=== PATIENT | female | born 1960 | race Caucasian/White ===

== ENCOUNTER 2021-06-27 12:18 | Inpatient (IN) | payer OTHER, SELFPAY ==
[2021-06-27] VITALS (28 sets, daily range): BP systolic 126–152; BP diastolic 77–96; PULSE 87–108; RESP 6–38; TEMP 36.6–37.2; O2SAT 50–97
--- NOTE | ~2021-06-27 | XR_ITS ---
EXAMINATION: XR chest 1V portable DATE: 06/29/2021 08:19 INDICATION: COVID-19 pneumonia. TECHNIQUE: A single frontal view of the chest was obtained. COMPARISON: Chest single view 06/27/2021, chest CT 06/27/2021 FINDINGS: There are airspace opacities in all lung zones bilaterally. No pleural effusion or pneumoth orax. The heart size is normal. IMPRESSION: 1. Diffuse lung disease with improvement from 06/27/2021, consistent with COVID-19 pneumonia. Reviewed, dictated and finalized at location A. IMPRESSION: 1. Diffuse lung disease with improvement from 06/27/2021, consistent with COVID-1 9 pneumonia.
--- NOTE | ~2021-06-27 | CT_ITS ---
EXAMINATION: CTA chest PE protocol EXAM DATE: 06/27/2021 15:14 INDICATION: covid +, shortness of breath, fevers, cough. TECHNIQUE: Spiral CTA of the chest (pulmonary arteries) was performed with 100 cc Omnipaque 350 intr avenous contrast injection. Images were acquired during the pulmonary arterial phase. Coronal maxi mum intensity projection 3D-reconstructions were created by the technologist on dedicated workstation . Axial, coronal and sagittal reformatted images were reviewed. The dose-length product (DLP) for t his examination was 248.69 mGy-cm. The exposure was tailored according to patient size (auto mA exp osure control), and iterative reconstruction (ASIR) was used as additional dose reduction technique. There is no prior study for comparison. FINDINGS: The main, central pulmonary arteries are dilated which can indicate elevated pulmonary [place] rial pressure, pulmonary arterial hypertension. There are no pulmonary emboli in the 1st through 3r d order (central and interlobar) pulmonary arteries. Some loss of attenuation in the left basilar se gmental pulmonary from respiratory motion, these regions not confidently evaluated. No Intraluminal f illing defects identified. No thoracic aortic dissection. There is diffuse bilateral airspace disease, both groundglass opacities but also regions of confluenc e. Appearance is consistent with acute to subacute COVID pneumonia. There are no pleural or pericar dial effusions. Tracheobronchial tree is patent. There is no mediastinal, hilar or axillary lymph adenopathy. There is no pneumothorax. Heart normal in size. No evidence of coronary arterial ca lcification. Upper abdomen is unremarkable. There is thoracic spondylosis without osteoblastic or osteolytic lesions identified. IMPRESSION: 1. Limited left basilar segmental evaluation, but no pulmonary emboli are suspected. 2. Extensive COVID pneumonia. Reviewed, dictated and finalized at location A. IMPRESSION: 1. Limited left basilar segmental evaluation, but no pulmonary emboli are susp ected. 2. Extensive COVID pneumonia.
--- NOTE | ~2021-06-27 | XR_ITS ---
EXAMINATION: XR chest 1V portable EXAM DATE: 06/27/2021 13:48 INDICATION: COVID +, dyspnea. TECHNIQUE: Portable AP frontal chest x-ray was obtained. There is no prior study for comparison. FINDINGS: Diffuse bilateral acute airspace disease, appearance is consistent with COVID pneumonia. Th ere is cardiomegaly. No pneumothorax or pleural effusion. There are no osseous abnormalities identifi ed. IMPRESSION: Diffuse pneumonia. Reviewed, dictated and finalized at location A. IMPRESSION: Diffuse pneumonia.
--- NOTE | ~2021-06-27 | US_ITS ---
EXAMINATION:US venous doppler LE RT INDICATION:Right calf pain TECHNIQUE: Multiple grayscale, color flow and Doppler images of the right lower extremity deep venous systems were obtained and reviewed. COMPARISON:No prior studies for comparison. FINDINGS: The common femoral, superficial femoral and popliteal veins demonstrate normal respiratory variation, augmentation and compressibility. Color flow is also seen within the posterior tibial, pe roneal, greater saphenous and profunda veins. IMPRESSION: 1: No lower extremity deep venous thrombosis. Reviewed, dictated and finalized at location A.
--- NOTE | 2021-06-27 12:35 | ED.URI ---
HPI - URI/Sore Throat General Chief Complaint: Upper Respiratory Infection Stated Complaint: Covid + Fatique,confusion Time Seen by Provider: 06/27/21 12:35 Source: patient Mode of arrival: ambulatory History of Present Illness HPI Narrative: Patient is a 61-year-old female with a history of depression, anemia who presents for evaluation of worsening Covid type symptoms. Patient with a positive Covid test on June 19. Initially started with fever, chills, dry cough. Patient has had associated myalgias, decreased oral intake without nausea or vomiting. She reports mild diarrhea. No chest pain. She does report shortness of breath at baseline. She states she is very fatigued. 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 Of note, patient oxygen saturations at 60% on room air. Patient placed on NRB mask at 15 L/min. Related Data Allergies Allergy/AdvReac Type Severity Reaction Status Date / Time codeine Allergy Mild NAUSEA Verified 06/27/21 12:56 diphenhydramine Allergy Hallucinati Verified 06/27/21 12:56 [From Quel] [email or web address] Review of Systems Review of Systems: CONSTITUTIONAL: Reports fever and chills EYES: Denies visual changes, redness, or discharge. ENT: Denies rhinorrhea, congestion, sore throat, or otalgia. CARDIOVASCULAR: Denies chest pain, palpitations, or edema. RESPIRATORY: Reports productive cough and shortness of breath. GASTROINTESTINAL: Denies abdominal pain, nausea, vomiting, or diarrhea. GENITOURINARY: Denies dysuria or hematuria. SKIN: Denies rash or itching. 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 EYES: PERRLA and EOMI. ENT: Nares clear, no rhinorrhea or epistaxis. Mucous membranes dry. NECK: Supple. CHEST: Hypoxic, tachypnea, nonlabored respirations HEART: Tachycardic rate, sinus rhythm ABDOMEN:Non distended, non tender EXTREMITIES: Normal range of motion. Bilateral lower extremity nonpitting edema, mild right calf tenderness SKIN: Warm, dry, no rash. NEURO:No focal deficits. Alert and oriented x3 Course Vital Signs Vital signs: Vital Signs Pulse Rate 107 H 06/27/21 12:29 Respiratory Rate 18 06/27/21 12:29 Temperature 37.2 C 06/27/21 12:46 Pulse Rate 90 06/27/21 16:31 Respiratory Rate 12 06/27/21 16:31 Blood Pressure 138/77 06/27/21 16:31 Pulse Oximetry 95 06/27/21 16:31 MDM - URI/Sore Throat MDM Narrative Medical decision making narrative: Patient is a 61-year-old female with recent diagnosis of Covid on day 8 of illness who presented in hypoxic respiratory failure. The time of assessment, oxygen saturation is 60% in room, patient is not terribly tachypneic, but is tachycardic. She was placed on a nonrebreather with improvement to 94%. Patient was able to be titrated over to high flow nasal cannula at 15 L. Patient was some mild electrolyte abnormalities, mild hyponatremia, hypochloremia, hypocalcemia, hypokalemia. She was given gentle IV normal saline as well as oral potassium replacement. Patient with mild elevation in AST. No other severe abnormalities on exam. She does have an elevated D-dimer, will obtain a CT to ensure no PE. Given appearance of chest x-ray, consistent with Covid hypoxic respiratory failure. Patient was given Decadron in the ER per protocol. Remdesivir protocol ordered. Patient not started on antibiotic therapy given this is a viral p
--- NOTE | 2021-06-27 13:05 | ECG_ITS ---
Measurements Intervals Sullivan Rate: 94 P: 21 OK: 144 QRS: 1 QRSD: 81 T: -10 QT: 388 QTc: 485 Interpretive Statements SINUS RHYTHM WITH SINUS ARRHYTHMIA BORDERLINE T WAVE ABNORMALITY- ANTEROLAT/INF LEADS BORDERLINE ECG Electronically Signed On 06-27-2021 13:58:22 CDT by Rob Santiago D.O.
[2021-06-27] MEDS: SODIUM CHLORIDE 0.9% IV 1,000 ML 999 ML IV CONT (13:30)
[2021-06-27] MEDS: ONDANSETRON INJ 4 MG/2 ML VIAL IV PUSH (13:30)
[2021-06-27 13:31] LABS: Hematocrit 38.7 % (37.0-47.0); Hemoglobin 12.5 g/dL (12.0-15.0); Immature Granulocyte Absolute 0.05 K/mm3 (0.00-0.031); Immature Granulocyte Percent A 0.8 % (0-0.5); Lymphocytes Absolute Auto 0.54 K/mm3 (0.9-3.2); Lymphocytes Percent Auto 8.5 % (18.3-44.2); Mean Corpuscular HGB Conc 32.3 g/dl (32-36); Mean Corpuscular Hemoglobin 30.2 pg (26-34); Mean Corpuscular Volume 93.5 fl (80-100); Mean Platelet Volume 9.3 fl (7.4-10.4); Monocytes Absolute Auto 0.2 K/mm3 (0.1-0.6); Neutrophils Absolute Auto 5.6 K/mm3 (1.3-6.7); Neutrophils Percent Auto 87.7 % (45.5-73.1); Platelet Count Result 245 k/mm3 (150-375); Red Blood Count 4.14 M/mm3 (4.2-5.4); Red Cell Distribution Width 13.3 % (11.5-14.5); White Blood Count 6.4 K/mm3 (4.5-10.0)
[2021-06-27 13:32] LABS: Alveolar/Arterial O2 Gradient 485.8 mmHg; Carboxyhemoglobin 1.3 % THb (0-2.0); Fractional Inspired Oxygen 80 %; HCO3 ABG 30.9 mEq/l (22.0-26.0); Methemoglobin ABG 0.1 %THb (0-1.5); Oxygen Content ABG 13.1 %vol (16.0-22.0); Oxyhemoglobin 78.7 % THb (90.0-100.0); PCO2 ABG 41.5 mmHg (35.0-45.0); PO2 FiO2 Ratio Arterial Blood 0.51 %; Reduced Hemoglobin 19.9 %THb (0-5.0); Total Hemoglobin 11.9 g/dL (12.0-18.0)
[2021-06-27 13:36] LABS: Device NON-REBREATHER MASK; Modified Allen's Test Pass; Oxygen Saturation ABG 80.4 % (95.0-100.0); Site Drawn LEFT RADIAL
[2021-06-27 13:41] LABS: Prothrombin Time 13.2 Seconds (11.1-14.7)
[2021-06-27 13:42] LABS: Partial Thromboplastin Time 35.4 SECONDS (22.3-36.8)
[2021-06-27 13:44] LABS: D Dimer 1.87 ug/mL (<0.48)
[2021-06-27 13:47] LABS: Lactic Acid Reflex 1.6 mmol/L (0.7-2.1)
[2021-06-27 13:53] LABS: Alanine Aminotransferase 26 U/L (4-35); Albumin Level 3.5 g/dL (3.5-5.1); Alkaline Phosphatase 87 U/L (38-126); Anion Gap 5 mmol/L (8-16); Aspartate Amino Transferase 80 U/L (14-36); Bilirubin,Total 0.7 mg/dL (0.2-1.3); Blood Urea Nitrogen 8 mg/dL (7-17); Calcium 7.9 mg/dL (8.4-10.2); Carbon Dioxide 33 mmol/L (22-30); Chloride 93 mmol/L (98-107); Creatine Kinase 145 U/L (30-135); Estimated CRCL calculation 130 ml/min; Estimated Glomerular Filt Rate > 60; Glucose 119 mg/dL (65-110); Potassium 3.2 mmol/L (3.4-5.0); Sodium 131 mmol/L (137-145)
[2021-06-27 14:01] LABS: NT Pro B Type Natriuretic Pept 291 pg/mL (5-100); Troponin I < 0.012 ng/mL (0.000-0.034)
[2021-06-27 14:11] LABS: Add Urine Microscopic? YES; Appearance Urine Clear (Clear); Bacteria Urine Trace /hpf; Bilirubin Urine Negative (Negative); Blood Urine Negative (Negative); Color Urine Yellow (Yellow); Glucose Urine UA Negative (Negative); Ketones Urine Negative (Negative); Leukocyte Esterase Ur Negative LEU/UL (Negative); Mucus Urine Rare /lpf; Nitrate Urine Negative (Negative); Protein Urine 2+ mg/dL (Negative); Specific Grav Ur 1.012 (1.001-1.035); Squamous Epithelial Cell Urine Moderate /hpf (Few); Urobilinogen Urine Negative mg/dL (<2.0)
[2021-06-27 14:29] LABS: CRP 31.7 mg/dL (<1.0)
--- NOTE | 2021-06-27 14:30 | PM.IMHP ---
H&P: HPI History of Present Illness Date/Time: 06/27/21 14:30 Chief Complaint: COVID positive, multiple complaints Narrative: This is a very pleasant 61-year-old recently diagnosed with COVID-19 with chronic sinusitis and anxiety who presented to the emergency department earlier today from home with multiple complaints. On June 18, 2021 she developed symptoms similar to those that she experiences with sinus infections including sinus congestion, rhinorrhea, congestion, and mild sore throat. She was prescribed a Z-Shen on the same day by her primary care provider and was tested for COVID-19 as well, which came back positive the following day. Since that time she has continued to feel poorly with symptoms to include body aches, fever, poor appetite, weakness, dry cough, shortness of breath, and even some mild confusion. She has been taking acetaminophen and [id number] nighttime cold and flu therapies without much benefit. Today she was extremely short of breath and decided to come in for evaluation. On arrival to the emergency department her SpO2 was 62% on room air and she is currently on high-flow nasal cannula 60 L at 85% FiO2 with SpO2 in the mid 90s. CTA of the chest showed extensive COVID pneumonia and no obvious pulmonary emboli though evaluation with limited left basilar segment due to respiratory motion. She did not receive prophylactic treatment or early treatment with monoclonal antibodies and was not vaccinated. 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 After lengthy discussion with the patient, with 2 nurses as witnesses, the patient designates her ex- Richard Malone as her surrogate decision maker. The patient had originally designated her sister, Tia, as her surrogate decision maker however they have differing opinions regarding treatment options. She wishes to be a full code and is amenable to intubation and if needed as well as tracheostomy should her condition decline. The patient expressed her wish to be treated with dexamethasone, remdesivir, baricitinib, and convalescent plasma after discussions with myself as well as the ER physician. Review of Systems Review of Systems: Twelve systems were reviewed. She has had a mild headache. No vertigo. No neck ache. She denies rash. No vomiting or diarrhea. No dysuria. No syncope. Except as documented, all other systems were reviewed and are negative. [facility] Past Medical History Medical History (Updated 06/27/21 @ 21:13 by Bree Zuluaga PA-C) Anxiety Chronic sinusitis Depression Surgical History Surgical History (Updated 06/27/21 @ 21:03 by Bree Zuluaga PA-C) History of section X4. History of dilation and curettage History of endometrial ablation Family History Family History (Updated 06/27/21 @ 21:03 by Bree Zuluaga PA-C) Other No significant family history Social History Social History (Updated 06/27/21 @ 21:27 by Bree Zuluaga PA-C) Social History: Surrogate decision maker: Richard Malone, ex-. Code status: Full code. Smoking status: Never smoker Alcohol intake: never Substance use: never Additional living arrangements comments: The patient lives in [place] with her sons. 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 Meds Home Medications and Allergies Home Medications Medication Instructions Recorded Confirmed Type clonazepam 2 mg PO BID PRN 06/27/21 06/27/21 History Allergies Allergy/AdvReac Type Severity Reaction Status Date / Time codeine Allergy Mild NAUSEA Verified 06/27/21 12:56 diphenhydramine Allergy Hallucinati Verified 06/27/21 12:56 [From Benadryl] ng Vital Signs Vital Signs - 24 hr 06/27/21 12:29 06/27/21 12:30 06/27/21 12:31 Temperature Pulse Rate 107 H 106 H 108 H Respiratory Rate 18 36 H 25 H Blood Pressure 152/83 H Pulse Oximetry 50 L 51 L 06/27/21 12:45 06/27/21
--- NOTE | 2021-06-27 14:59 | PC.NURSE ---
Pt off floor in radiology
[2021-06-27] MEDS: REMDESIVIR 200 MG/NS 250 ML 200 MG/250 ML BAG 250 MG IVPB (15:58)
--- NOTE | 2021-06-27 16:00 | PC.NURSE ---
Patient assisted to bedside commode. Dropped to 75% on high flow nasal cannula @ 15 liters. Pt then had coughing fit, continued to stay at 75%. MD aware. Placed on non-rebreather 15 liters, O2 is 95%. Pt laying on left side. Respiratory at bedside.
[2021-06-27 17:00] LABS: Alanine Aminotransferase 27 U/L (4-35); Estimated CRCL calculation 130 ml/min; Estimated Glomerular Filt Rate > 60; Prothrombin Time 13.5 Seconds (11.1-14.7)
--- NOTE | 2021-06-27 17:47 | PC.NURSE ---
Patient's son was updated by phone with permission from patient.
[2021-06-27] MEDS: POTASSIUM CHLORIDE 20 MEQ PACKET (FOR LIQUID) 40 MEQ PO (18:22)
--- NOTE | 2021-06-27 18:23 | PC.NURSE ---
Linen change after using bedpan. Pt currently drinking potassium. 92%
--- NOTE | 2021-06-27 18:33 | PC.NURSE ---
Called Kirk in IMU with update. Patient had small nose bleed, cleaned up. Pt coughing after using bedpan, saturations remained stable.
--- NOTE | 2021-06-27 18:37 | PC.NURSE ---
ED respiratory called for transport to IMU
--- NOTE | 2021-06-27 19:14 | ADMGEN ---
This patient, Jenna Malone, was admitted to IMU Room 214-01. Patient/family oriented to hospital policies and general routines including ID bracelet, bed and alarms, visiting hours, pain management, procedures, bathroom and other care routines, personal items, smoking policy, room service/diet, and visiting hours. Information on how to activate the Rapid Response Team has been discussed. Patient/Family are encouraged to report perceived risks to care and to ask questions if they do not understand what they are told or what they should do.
[2021-06-27] MEDS: SODIUM CHLORIDE 0.9% IV 1,000 ML 125 ML IV CONT (20:23)
--- NOTE | 2021-06-27 21:55 | PC.NURSE ---
During patient admission patient sister called and got very aggressive with staff. Said Why are you asking any questions! She has COVID, she doesn't want anything done! Tried to talk to the sister and explain that getting a past medical history will help treat her. This made the sister even more upset. Patient then took the phone away and hung up on the sister. Talk to patient about her primary contact and the importance of dedicating a person that would make decisions for her, she appointed Vern Malone. He was called and asked if he was able to make decisions for her if she was no longer able to do so, he said Yes I will do anything she wants me to do. Asked patient if there was a need to be ventilated and place on a ventilator that the patient was all right with us doing so, patient said yes with Vern on the phone. Patient also agreed to with the current plan of care and medication that has been ordered at this time. Vern was also updated on what the current plan and medication are at this time.
[2021-06-27 22:50] LABS: Anion Gap 2 mmol/L (8-16); Blood Urea Nitrogen 7 mg/dL (7-17); Carbon Dioxide 35 mmol/L (22-30); Chloride 101 mmol/L (98-107); Estimated CRCL calculation 130 ml/min; Estimated Glomerular Filt Rate > 60; Glucose 147 mg/dL (65-110); Magnesium 2.5 mg/dL (1.6-2.3); Potassium 4.3 mmol/L (3.4-5.0); Sodium 138 mmol/L (137-145)
[2021-06-27 23:16] LABS: Lactate Dehydrogenase 2021 U/L (313-618)
[2021-06-28] VITALS (29 sets, daily range): BP systolic 144–168; BP diastolic 79–96; PULSE 69–100; RESP 20–44; TEMP 36.4–37.1; O2SAT 90–99
[2021-06-28] MEDS: BARICITINIB 2 MG TABLET 4 MG PO ×2 (00:17→15:02)
[2021-06-28 06:31] LABS: Hematocrit 35.2 % (37.0-47.0); Hemoglobin 11.5 g/dL (12.0-15.0); Mean Corpuscular HGB Conc 32.7 g/dl (32-36); Mean Corpuscular Hemoglobin 30.2 pg (26-34); Mean Corpuscular Volume 92.4 fl (80-100); Mean Platelet Volume 8.9 fl (7.4-10.4); Platelet Count Result 273 k/mm3 (150-375); Red Blood Count 3.81 M/mm3 (4.2-5.4); Red Cell Distribution Width 13.2 % (11.5-14.5); White Blood Count 3.2 K/mm3 (4.5-10.0)
[2021-06-28 06:43] LABS: INR 1.1; Prothrombin Time 14.5 Seconds (11.1-14.7)
[2021-06-28 07:14] LABS: Albumin Level 3.2 g/dL (3.5-5.1)
[2021-06-28 07:18] LABS: Alanine Aminotransferase 27 U/L (4-35); Alkaline Phosphatase 77 U/L (38-126); Anion Gap 3 mmol/L (8-16); Aspartate Amino Transferase 66 U/L (14-36); Bilirubin,Total 0.7 mg/dL (0.2-1.3); Blood Urea Nitrogen 10 mg/dL (7-17); Calcium 8.2 mg/dL (8.4-10.2); Carbon Dioxide 32 mmol/L (22-30); Chloride 102 mmol/L (98-107); Estimated CRCL calculation 130 ml/min; Estimated Glomerular Filt Rate > 60; Glucose 120 mg/dL (65-110); Magnesium 2.3 mg/dL (1.6-2.3); Potassium 3.9 mmol/L (3.4-5.0); Sodium 137 mmol/L (137-145)
[2021-06-28 07:30] LABS: Lactate Dehydrogenase 2034 U/L (313-618)
[2021-06-28] MEDS: ALBUTEROL SULFATE (*SP) AEROSOL 1 PUFF 2 PUFF INHALATION ×4 (09:09→20:04)
[2021-06-28] MEDS: BUDESONIDE RESPULE NEB 0.5 MG/2 ML AMP INHALATION ×2 (09:09→20:04)
[2021-06-28] MEDS: guaiFENesin 12 HR 600 MG TABCR PO ×2 (09:10→21:12)
[2021-06-28] MEDS: ENOXAPARIN 40 MG/0.4 ML SYRINGE SUB-Q (09:11)
[2021-06-28 09:41] LABS: CRP 31.9 mg/dL (<1.0)
[2021-06-28] MEDS: REMDESIVIR 100 MG/NS 250 ML 100 MG/250 ML BAG 250 MG IVPB (11:01)
--- NOTE | 2021-06-28 12:52 | PM.IMPN ---
Progress Note: A&P Assessment and Plan (1) Acute respiratory failure with hypoxia: Code(s): J96.01 - Acute respiratory failure with hypoxia Status: Acute Assessment and Plan: Secondary to extensive COVID pneumonia noted on chest CT. Currently on high-flow nasal cannula, 60 L at 85% FiO2. Patient amenable to intubation and tracheostomy if needed. Albuterol MDI and Pulmicort scheduled. (2) Pneumonia due to COVID-19 virus: Code(s): U07.1 - COVID-19; J12.82 - Pneumonia due to coronavirus disease 2019 Status: Acute Assessment and Plan: Chest CT shows extensive acute to subacute COVID pneumonia. Patient has been started on dexamethasone, remdesivir, and baricitinib (day 1). Continue contact, droplet, and airborne isolation precautions. Trend inflammatory markers (CRP 31.7). (3) Elevated blood pressure reading: Code(s): R03.0 - Elevated blood-pressure reading, without diagnosis of hypertension Status: Acute Assessment and Plan: Blood pressures were reviewed and they have been running in the 130s to 140 systolic. Patient is quite anxious and we discussed limiting phone calls at least tonight so she can sleep. Will continue to monitor blood pressures closely for now and initiate antihypertensive if it trends high consistently. (4) Dehydration: Code(s): E86.0 - Dehydration Status: Acute Assessment and Plan: Secondary to poor oral intake for the past 1 week. Cautious IV fluid rehydration overnight. Avoid over-hydration given her COVID-19 status. Encouraged oral intake. (5) Hypokalemia: Code(s): E87.6 - Hypokalemia Status: Acute Assessment and Plan: Potassium will be replaced and monitored. (6) Anxiety: Code(s): F41.9 - Anxiety disorder, unspecified Status: Acute Assessment and Plan: Patient is quite anxious at times, seems to be worse after on the phone with her family members. Continue clonazepam twice daily as needed. Encouraged rest and taking breaks from her phone. Additional Plan The patient has authorized us to speak ONLY with her ex-, Richard Malone, and her 4 children (Domo, Mariusz, Bhavin, and Radha) on her condition and with updates. She also designates Richard as her surrogate decision maker as detailed above. Patient remains a full code and is amenable to intubation and tracheostomy if needed. As of now continue with remdesivir, steroids, baricitinib, oxygen to maintain saturation above 90. Time Spent With Patient Time with patient: less than 15 minutes Subjective Date/time seen: 06/28/21 12:52 patient receiving breathing treatment, respiration is not labored, although she does not appear comfortable. Requiring supplemental oxygen to maintain saturations. Review of Systems Review of Systems: All systems reviewed & are unremarkable except as noted in HPI and below Exam Const: General: no acute distress Neck: Neck: no JVD Resp: Effort & Inspection: normal respiratory effort Auscultation: not clear to auscultation bilaterally Other: diffuse crackles in all lung viveros, some mild wheezing Cardio: Rate: regular rate Rhythm: regular rhythm GI: GI Palp: Yes Soft to palpation and No Tenderness to palpation present (GI) Objective Data Vital Signs Vital Signs: Vital Signs - 24 hr 06/27/21 12:57 06/27/21 13:00 06/27/21 13:15 Temperature Pulse Rate 97 95 Respiratory Rate 29 H 34 H Blood Pressure Pulse Oximetry 94 95 95 06/27/21 13:31 06/27/21 16:15 06/27/21 16:20 Temperature Pulse Rate 96 89 Respiratory Rate 27 H 6 L Blood Pressure Pulse Oximetry 92 95 95 06/27/21 16:30 06/27/21 16:31 06/27/21 16:32 Temperature Pulse Rate 88 90 87 Respiratory Rate 12 Blood Pressure 138/77 Pulse Oximetry 95 95 95 06/27/21 16:45 06/27/21 16:46 06/27/21 17:00 Temperature Pulse Rate 95 89 91 Respiratory Rate 33 H 34 H 25 H
[2021-06-28 20:43] LABS: SARS-CoV-2 RNA PCR Positive
[2021-06-29] VITALS (22 sets, daily range): BP systolic 124–158; BP diastolic 69–88; PULSE 62–95; RESP 20–44; TEMP 36.4–37.2; O2SAT 93–99; BMI 32.3
[2021-06-29 06:03] LABS: Basophils Percent Auto 0.1 % (0.2-1.2); Hematocrit 35.6 % (37.0-47.0); Hemoglobin 11.6 g/dL (12.0-15.0); Immature Granulocyte Absolute 0.09 K/mm3 (0.00-0.031); Immature Granulocyte Percent A 1.3 % (0-0.5); Lymphocytes Percent Auto 16.1 % (18.3-44.2); Mean Corpuscular HGB Conc 32.6 g/dl (32-36); Mean Corpuscular Hemoglobin 30.6 pg (26-34); Mean Corpuscular Volume 93.9 fl (80-100); Mean Platelet Volume 9.2 fl (7.4-10.4); Monocytes Absolute Auto 0.5 K/mm3 (0.1-0.6); Monocytes Percent Auto 7.6 % (2.6-8.5); Neutrophils Absolute Auto 5.1 K/mm3 (1.3-6.7); Neutrophils Percent Auto 74.9 % (45.5-73.1); Nucleated Red Blood Cells Perc 0.3 % (0.0-0.2); Platelet Count Result 256 k/mm3 (150-375); Red Blood Count 3.79 M/mm3 (4.2-5.4); Red Cell Distribution Width 13.4 % (11.5-14.5); White Blood Count 6.8 K/mm3 (4.5-10.0)
[2021-06-29 06:16] LABS: Alanine Aminotransferase 33 U/L (4-35); Albumin Level 3.3 g/dL (3.5-5.1); Alkaline Phosphatase 77 U/L (38-126); Anion Gap 4 mmol/L (8-16); Aspartate Amino Transferase 76 U/L (14-36); Blood Urea Nitrogen 17 mg/dL (7-17); Calcium 8.6 mg/dL (8.4-10.2); Carbon Dioxide 31 mmol/L (22-30); Chloride 101 mmol/L (98-107); Estimated CRCL calculation 130 ml/min; Estimated Glomerular Filt Rate > 60; Glucose 108 mg/dL (65-110); Magnesium 2.4 mg/dL (1.6-2.3); Phosphorus 3.8 mg/dL (2.5-4.5); Sodium 136 mmol/L (137-145)
[2021-06-29 06:24] LABS: INR 1.1; Prothrombin Time 14.4 Seconds (11.1-14.7)
[2021-06-29] MEDS: ALBUTEROL SULFATE (*SP) AEROSOL 1 PUFF 2 PUFF INHALATION ×2 (08:00→21:47)
[2021-06-29] MEDS: BUDESONIDE RESPULE NEB 0.5 MG/2 ML AMP INHALATION ×2 (08:30→21:47)
[2021-06-29] MEDS: guaiFENesin 12 HR 600 MG TABCR PO (08:45)
[2021-06-29] MEDS: BARICITINIB 2 MG TABLET 4 MG PO (08:45)
[2021-06-29] MEDS: ENOXAPARIN 40 MG/0.4 ML SYRINGE SUB-Q (08:46)
[2021-06-29 08:54] LABS: Alveolar/Arterial O2 Gradient 505.1 mmHg; Base Excess ABG 5.5 mEq/l (+/-2.0); Carboxyhemoglobin 0.3 % THb (0-2.0); Fractional Inspired Oxygen 90 %; HCO3 ABG 29.2 mEq/l (22.0-26.0); Methemoglobin ABG 0.3 %THb (0-1.5); Oxygen Content ABG 17.8 %vol (16.0-22.0); Oxygen Saturation ABG 97.7 % (95.0-100.0); Oxyhemoglobin 96.1 % THb (90.0-100.0); PCO2 ABG 39.7 mmHg (35.0-45.0); PO2 ABG 95.9 mmHg (80.0-100.0); PO2 FiO2 Ratio Arterial Blood 1.07 %; Reduced Hemoglobin 3.3 %THb (0-5.0); Total Hemoglobin 13.1 g/dL (12.0-18.0); pH ABG 7.485 (7.350-7.450)
[2021-06-29 08:55] LABS: Device NON-INVASIVE VENT; Modified Allen's Test Pass; Non-Invasive Expiratory Pressure 7 CMH2O; Non-Invasive Inspiratory Pressure 15 CMH2O; Non-Invasive Vent Rate 4 /MIN; Site Drawn LEFT RADIAL
[2021-06-29] MEDS: clonazePAM (*CRX) 0.5 MG TABLET 1 MG PO ×2 (08:59→21:17)
--- NOTE | 2021-06-29 09:34 | PM.IMPN ---
Progress Note: A&P Assessment and Plan (1) Acute respiratory failure with hypoxia: Code(s): J96.01 - Acute respiratory failure with hypoxia Status: Acute Assessment and Plan: Secondary to extensive COVID pneumonia noted on chest CT. High-flow nasal cannula, continues to be short of breath, will initiate BiPAP wean as tolerated Patient amenable to intubation Albuterol MDI and Pulmicort scheduled (2) Pneumonia due to COVID-19 virus: Code(s): U07.1 - COVID-19; J12.82 - Pneumonia due to coronavirus disease 2018 Status: Acute Assessment and Plan: Chest CT shows extensive acute to subacute COVID pneumonia. Continue dexamethasone, remdesivir, and baricitinib 06/28- Continue contact, droplet, and airborne isolation precautions. (3) Elevated blood pressure reading: Code(s): R03.0 - Elevated blood-pressure reading, without diagnosis of hypertension Status: Acute Assessment and Plan: Persistently elevated. Initiate amlodipine 5 mg daily and titrate. (4) Dehydration: Code(s): E86.0 - Dehydration Status: Acute Assessment and Plan: Discontinue IVF Encourage oral hydration (5) Hypokalemia: Code(s): E87.6 - Hypokalemia Status: Acute Assessment and Plan: Replaced, now normal (6) Anxiety: Code(s): F41.9 - Anxiety disorder, unspecified Status: Acute Assessment and Plan: Patient is quite anxious at times, seems to be worse after on the phone with her family members. Continue clonazepam twice daily as needed. Additional Plan DVT prophylaxis: enoxaparin Code status: Full code Subjective Date/time seen: 06/29/21 09:34 Initially was stable on oxygen early in the night, thin had some rigorous cough after which O2 saturation has dropped concurrently on high-flow oxygen. She feels her shortness of breath is worsening history currently. Blood pressure systolics 140s, heart rate 60s and regular. Exam Narrative: Gen: Alert, on high-flow oxygen Abd: Soft, NT, ND Heart: RRR Lungs: CTAB Ext: No lower extremity edema Objective Data Vital Signs Vital Signs: Vital Signs - 24 hr 06/28/21 09:43 06/28/21 10:00 06/28/21 12:00 Temperature 97.6 F Pulse Rate 99 91 95 Respiratory Rate 22 H Blood Pressure 144/79 H Pulse Oximetry 93 95 09/09/21 12:47 06/28/21 14:00 06/28/21 15:06 Temperature 97.9 F 98.5 F Pulse Rate 92 90 82 Respiratory Rate 20 28 H Blood Pressure 156/95 H 150/83 H Pulse Oximetry 93 95 06/28/21 15:25 06/28/21 16:00 06/28/21 16:25 Temperature 98.7 F 98.5 F Pulse Rate 83 78 82 Respiratory Rate 28 H 32 H Blood Pressure 151/85 H 149/81 H Pulse Oximetry 95 92 96 06/28/21 16:33 06/28/21 17:25 06/28/21 17:29 Temperature 97.9 F 98.5 F Pulse Rate 96 82 Respiratory Rate 44 H 32 H Blood Pressure 150/85 H 149/81 H Pulse Oximetry 99 91 96 06/28/21 18:00 06/28/21 20:00 06/28/21 20:06 Temperature Pulse Rate 86 89 97 Respiratory Rate 24 H Blood Pressure Pulse Oximetry 98 97 06/28/21 20:24 06/28/21 20:25 06/28/21 20:39 Temperature 97.8 F Pulse Rate 98 87 Respiratory Rate 28 H 22 H Blood Pressure 147/83 H Pulse Oximetry 97 96 06/28/21 22:00 06/29/21 00:00 06/29/21 02:00 Temperature 98.2 F Pulse Rate 95 71 67 Respiratory Rate 20 Blood Pressure 148/86 H Pulse Oximetry 97 98 06/29/21 03:36 06/29/21 04:00 06/29/21 06:00 Temperature 97.6 F Pulse Rate 69 62 66 Respiratory Rate 20 Blood Pressure 148/83 H Pulse Oximetry 97 95 Intake/Output Intake/Output: Intake & Output 06/26/21 06/27/21 06/28/21 06/29/21 23:59 23:59 23:59 23:59 Intake Total 1250 1767 300 Output Total 2300 1000 Balance 0933 -578 -205 Meds/Results Medications: Active Medications Generic Name Dose Route Start Last Admin Trade Name Freq PRN Reason Stop Dose Admin Albuterol 2 puff 06/28/21 08:00 06/28/21 20:04 Albuterol S
[2021-06-29] MEDS: REMDESIVIR 100 MG/NS 250 ML 100 MG/250 ML BAG 250 MG IVPB (10:24)
[2021-06-29] MEDS: amLODIPine BESYLATE 5 MG TABLET PO (14:50)
--- NOTE | 2021-06-29 17:22 | PCRCNOTE ---
Window of time for administration has passed. See next scheduled administration.
[2021-06-30] VITALS (16 sets, daily range): BP systolic 127–174; BP diastolic 68–89; PULSE 69–119; RESP 18–38; TEMP 36.6–37.4; O2SAT 85–100
[2021-06-30 05:59] LABS: INR 1.2; Prothrombin Time 14.8 Seconds (11.1-14.7)
[2021-06-30 06:15] LABS: Alanine Aminotransferase 34 U/L (4-35); Estimated CRCL calculation 106 ml/min; Estimated Glomerular Filt Rate > 60
[2021-06-30 07:52] LABS: Basophils Percent Auto 0.1 % (0.2-1.2); Hemoglobin 12.6 g/dL (12.0-15.0); Immature Granulocyte Absolute 0.17 K/mm3 (0.00-0.031); Lymphocytes Absolute Auto 1.12 K/mm3 (0.9-3.2); Lymphocytes Percent Auto 13.2 % (18.3-44.2); Mean Corpuscular HGB Conc 33.2 g/dl (32-36); Mean Corpuscular Hemoglobin 30.7 pg (26-34); Mean Corpuscular Volume 92.7 fl (80-100); Mean Platelet Volume 9.1 fl (7.4-10.4); Monocytes Absolute Auto 0.7 K/mm3 (0.1-0.6); Monocytes Percent Auto 7.7 % (2.6-8.5); Neutrophils Absolute Auto 6.5 K/mm3 (1.3-6.7); Platelet Count Result 247 k/mm3 (150-375); Red Cell Distribution Width 13.2 % (11.5-14.5); White Blood Count 8.5 K/mm3 (4.5-10.0)
--- NOTE | 2021-06-30 09:36 | PM.IMPN ---
Progress Note: A&P Assessment and Plan (1) Acute respiratory failure with hypoxia: Code(s): J96.01 - Acute respiratory failure with hypoxia Status: Acute Assessment and Plan: Secondary to extensive COVID pneumonia noted on chest CT. High-flow nasal cannula, continues to be short of breath, will initiate BiPAP wean as tolerated Patient amenable to intubation Albuterol MDI and Pulmicort scheduled (2) Pneumonia due to COVID-19 virus: Code(s): U07.1 - COVID-19; J12.82 - Pneumonia due to coronavirus disease 2018 Status: Acute Assessment and Plan: Chest CT shows extensive acute to subacute COVID pneumonia. Continue dexamethasone, remdesivir, and baricitinib 06/28- Continue contact, droplet, and airborne isolation precautions. (3) Elevated blood pressure reading: Code(s): R03.0 - Elevated blood-pressure reading, without diagnosis of hypertension Status: Acute Assessment and Plan: Persistently elevated. Amlodipine initiated 06/29, increased dose today to 10 mg. (4) Dehydration: Code(s): E86.0 - Dehydration Status: Acute Assessment and Plan: Discontinue IVF Encourage oral hydration (5) Hypokalemia: Code(s): E87.6 - Hypokalemia Status: Acute Assessment and Plan: Replaced, now normal (6) Anxiety: Code(s): F41.9 - Anxiety disorder, unspecified Status: Acute Assessment and Plan: Patient is quite anxious at times, seems to be worse after on the phone with her family members. Continue clonazepam twice daily as needed. Subjective Date/time seen: 06/30/21 09:36 This morning she was on high-flow oxygen at 55 L, 80% FiO2. Heart rate is in the 90s and regular. She feels overall better. Shortness of breath is improving. Remains tachypneic. Afebrile. Blood pressure elevated and reviewed. Review of Systems Review of Systems: All systems reviewed & are unremarkable except as noted in HPI and below Exam Narrative: Gen: Alert, on high-flow oxygen Abd: Soft, NT, ND Heart: RRR Lungs: CTAB Ext: No lower extremity edema Objective Data Vital Signs Vital Signs: Vital Signs - 24 hr 06/29/21 10:00 06/29/21 11:28 06/29/21 12:00 Temperature 97.6 F Pulse Rate 88 89 95 Respiratory Rate 38 H 44 H Blood Pressure 155/88 H Pulse Oximetry 94 93 06/29/21 13:48 06/29/21 14:00 06/29/21 16:00 Temperature 98.1 F Pulse Rate 78 91 Respiratory Rate 38 H Blood Pressure 124/69 Pulse Oximetry 95 94 06/29/21 17:51 06/29/21 18:00 06/29/21 20:00 Temperature 98.7 F Pulse Rate 88 91 Respiratory Rate 24 H Blood Pressure 152/85 H Pulse Oximetry 93 95 06/29/21 20:28 06/29/21 20:30 06/29/21 21:47 Temperature Pulse Rate 89 86 Respiratory Rate 24 H Blood Pressure Pulse Oximetry 93 95 06/29/21 21:58 06/29/21 22:00 06/29/21 23:43 Temperature 98.9 F Pulse Rate 87 89 80 Respiratory Rate 20 Blood Pressure 138/78 Pulse Oximetry 93 06/30/21 00:00 06/30/21 02:00 06/30/21 04:00 Temperature 98.5 F Pulse Rate 73 69 119 H Respiratory Rate 24 H Blood Pressure 152/88 H Pulse Oximetry 93 100 06/30/21 04:14 06/30/21 04:15 06/30/21 06:00 Temperature Pulse Rate 78 85 Respiratory Rate Blood Pressure Pulse Oximetry 91 88 L 06/30/21 08:00 Temperature 99.3 F Pulse Rate 93 Respiratory Rate 38 H Blood Pressure 174/85 H Pulse Oximetry 90 Intake/Output Intake/Output: Intake & Output 06/27/21 06/28/21 06/29/21 06/30/21 23:59 23:59 23:59 23:59 Intake Total 1250 1767 550 Output Total 2300 2600 450 Balance 1250 -533 -2050 -450 Meds/Results Medications: Active Medications Generic Name Dose Route Start Last Admin Trade Name Freq PRN Reason Stop Dose Admin Albuterol 2 puff 06/28/21 08:00 06/29/21 21:47 Albuterol Sulfate (*Sp) Aerosol 1 Puff INHALATION 2 puff QIDRT SEEMA Administration Amlodipine Besylate 5 mg
[2021-06-30] MEDS: REMDESIVIR 100 MG/NS 250 ML 100 MG/250 ML BAG 250 MG IVPB (10:30)
[2021-06-30] MEDS: ENOXAPARIN 40 MG/0.4 ML SYRINGE SUB-Q (10:31)
[2021-06-30] MEDS: BARICITINIB 2 MG TABLET 4 MG PO (10:32)
[2021-06-30] MEDS: amLODIPine BESYLATE 5 MG TABLET 10 MG PO (12:13)
[2021-06-30] MEDS: ALBUTEROL SULFATE (*SP) AEROSOL 1 PUFF 2 PUFF INHALATION ×2 (15:04→21:33)
[2021-06-30] MEDS: clonazePAM (*CRX) 0.5 MG TABLET 1 MG PO (21:12)
[2021-06-30] MEDS: BUDESONIDE RESPULE NEB 0.5 MG/2 ML AMP INHALATION (21:33)
[2021-06-30] MEDS: ACETAMINOPHEN 325 MG TABLET 650 MG PO (22:42)
[2021-07-01] VITALS (19 sets, daily range): BP systolic 114–131; BP diastolic 64–82; PULSE 68–100; RESP 16–26; TEMP 36.4–37.1; O2SAT 91–100
[2021-07-01 05:41] LABS: Alanine Aminotransferase 29 U/L (4-35); Estimated CRCL calculation 106 ml/min; Estimated Glomerular Filt Rate > 60
[2021-07-01 06:15] LABS: Basophils Percent Auto 0.5 % (0.2-1.2); Hematocrit 37.2 % (37.0-47.0); Hemoglobin 12.6 g/dL (12.0-15.0); Immature Granulocyte Absolute 0.31 K/mm3 (0.00-0.031); Immature Granulocyte Percent A 5.1 % (0-0.5); Lymphocytes Absolute Auto 0.84 K/mm3 (0.9-3.2); Lymphocytes Percent Auto 13.9 % (18.3-44.2); Mean Corpuscular HGB Conc 33.9 g/dl (32-36); Mean Corpuscular Volume 91.6 fl (80-100); Mean Platelet Volume 9.8 fl (7.4-10.4); Monocytes Absolute Auto 0.5 K/mm3 (0.1-0.6); Monocytes Percent Auto 8.1 % (2.6-8.5); Neutrophils Absolute Auto 4.4 K/mm3 (1.3-6.7); Neutrophils Percent Auto 72.4 % (45.5-73.1); Platelet Count Result 298 k/mm3 (150-375); Red Blood Count 4.06 M/mm3 (4.2-5.4); White Blood Count 6.1 K/mm3 (4.5-10.0)
[2021-07-01 06:46] LABS: INR 1.3; Prothrombin Time 15.7 Seconds (11.1-14.7)
[2021-07-01] MEDS: BARICITINIB 2 MG TABLET 4 MG PO (09:08)
[2021-07-01] MEDS: amLODIPine BESYLATE 5 MG TABLET 10 MG PO (09:08)
[2021-07-01] MEDS: ENOXAPARIN 40 MG/0.4 ML SYRINGE SUB-Q (09:08)
--- NOTE | 2021-07-01 09:19 | PM.IMPN ---
Progress Note: A&P Assessment and Plan (1) Acute respiratory failure with hypoxia: Code(s): J96.01 - Acute respiratory failure with hypoxia Status: Acute Assessment and Plan: Secondary to extensive COVID pneumonia noted on chest CT. Initially needed BiPAP intermittently, weaning down, continues to need high-flow oxygen currently. Patient amenable to intubation if needed Albuterol MDI and Pulmicort scheduled (2) Pneumonia due to COVID-19 virus: Code(s): U07.1 - COVID-19; J12.82 - Pneumonia due to coronavirus disease 2019 Status: Acute Assessment and Plan: Chest CT shows extensive acute to subacute COVID pneumonia. Continue dexamethasone, remdesivir, and baricitinib 06/28- Continue contact, droplet, and airborne isolation precautions. (3) Elevated blood pressure reading: Code(s): R03.0 - Elevated blood-pressure reading, without diagnosis of hypertension Status: Acute Assessment and Plan: Persistently elevated. Amlodipine initiated 06/29, increased dose to 10 mg 06/30. (4) Dehydration: Code(s): E86.0 - Dehydration Status: Acute Assessment and Plan: Discontinue IVF Encourage oral hydration (5) Hypokalemia: Code(s): E87.6 - Hypokalemia Status: Acute Assessment and Plan: Replaced, now normal (6) Anxiety: Code(s): F41.9 - Anxiety disorder, unspecified Status: Acute Assessment and Plan: Patient is quite anxious at times, seems to be worse after on the phone with her family members. Continue clonazepam twice daily as needed. Subjective Date/time seen: 07/01/21 09:19 Remains on respiratory support by [employer]. Currently on 55 L, 90%. She feels she is breathing better, able to converse, and her appetite is improving. Hemodynamically stable. Afebrile. Exam Narrative: Gen: Alert, on high-flow oxygen Abd: Soft, NT, ND Heart: RRR Lungs: CTAB Ext: No lower extremity edema Objective Data Vital Signs Vital Signs: Vital Signs - 24 hr 06/30/21 09:50 06/30/21 12:00 06/30/21 12:09 Temperature 98.1 F Pulse Rate 97 97 Respiratory Rate 18 Blood Pressure 138/89 Pulse Oximetry 93 97 97 06/30/21 16:00 06/30/21 18:00 06/30/21 20:00 Temperature 98.1 F 97.9 F Pulse Rate 102 H 101 H 91 Respiratory Rate 22 H 20 Blood Pressure 128/73 127/68 Pulse Oximetry 98 97 06/30/21 21:35 06/30/21 21:43 06/30/21 22:00 Temperature Pulse Rate 83 82 95 Respiratory Rate 20 20 Blood Pressure Pulse Oximetry 95 07/01/21 00:00 07/01/21 02:00 07/01/21 04:00 Temperature 98.5 F 98.7 F Pulse Rate 86 68 78 Respiratory Rate 20 20 Blood Pressure 124/78 126/78 Pulse Oximetry 100 98 07/01/21 04:26 07/01/21 06:00 07/01/21 08:00 Temperature Pulse Rate 71 89 Respiratory Rate Blood Pressure Pulse Oximetry 94 91 Intake/Output Intake/Output: Intake & Output 06/28/21 06/29/21 06/30/21 07/01/21 23:59 23:59 23:59 23:59 Intake Total 1767 550 620 Output Total 2300 2600 1075 350 [facility] -533 -2050 -455 -350 Meds/Results Medications: Active Medications Generic Name Dose Route Start Last Admin Trade Name Freq PRN Reason Stop Dose Admin Acetaminophen 650 mg 06/30/21 21:30 06/30/21 22:42 Acetaminophen 325 Mg Tablet PO 650 mg Q4H PRN Administration Mild Pain (1-3) or Fever Albuterol 2 puff 06/28/21 08:00 06/30/21 21:33 Albuterol Sulfate (*Sp) Aerosol 1 Puff INHALATION 2 puff QIDRT SEEMA Administration Amlodipine Besylate 10 mg 06/30/21 09:40 07/01/21 09:08 Amlodipine Besylate 5 Mg Tablet PO 10 mg QAM SEEMA Administration Artificial Tears 1 drop 07/01/21 09:10 Artificial Tears Ophth Soln 15 Ml Bottle EACH EYE QID PRN Dry Eye(s) Baricitinib 4 mg 06/27/21 22:30 07/01/21 09:08 Baricitinib 2 Mg Tablet PO 07/10/21 09:01 4 mg DAILY SEEMA Administration Budesonide 0.5 mg 06/28/21 08:00 06/30/21 21:33 [place]
[2021-07-01] MEDS: SODIUM CHLORIDE NASAL GEL 14.1 GM 1 APPLIC NASAL (10:09)
[2021-07-01] MEDS: ARTIFICIAL TEARS OPHTH SOLN 15 ML BOTTLE 1 DROP EACH EYE (10:09)
[2021-07-01] MEDS: REMDESIVIR 100 MG/NS 250 ML 100 MG/250 ML BAG 250 MG IVPB (10:09)
[2021-07-01] MEDS: BUDESONIDE RESPULE NEB 0.5 MG/2 ML AMP INHALATION ×2 (10:10→22:37)
[2021-07-01] MEDS: ALBUTEROL SULFATE (*SP) AEROSOL 1 PUFF 2 PUFF INHALATION ×3 (10:10→20:11)
[2021-07-01] MEDS: clonazePAM (*CRX) 0.5 MG TABLET 1 MG PO (20:23)
[2021-07-01] MEDS: ACETAMINOPHEN 325 MG TABLET 650 MG PO (20:23)
[2021-07-02] VITALS (21 sets, daily range): BP systolic 113–135; BP diastolic 65–83; PULSE 75–120; RESP 16–24; TEMP 36.6–36.9; O2SAT 90–98
[2021-07-02] MEDS: BENZONATATE 100 MG CAPSULE 200 MG PO (05:43)
--- NOTE | 2021-07-02 07:48 | PM.IMPN ---
Progress Note: A&P Assessment and Plan (1) Acute respiratory failure with hypoxia: Code(s): J96.01 - Acute respiratory failure with hypoxia Status: Acute Assessment and Plan: Secondary to extensive COVID pneumonia noted on chest CT. Initially needed BiPAP intermittently, weaning down, continues to need high-flow oxygen currently. Patient amenable to intubation if needed - full code noted in chart Albuterol MDI and Pulmicort scheduled (2) Pneumonia due to COVID-19 virus: Code(s): U07.1 - COVID-19; J12.82 - Pneumonia due to coronavirus disease 2018 Status: Acute Assessment and Plan: Chest CT shows extensive acute to subacute COVID pneumonia. Continue dexamethasone, remdesivir, and baricitinib 06/28- Continue contact, droplet, and airborne isolation precautions. (3) Elevated blood pressure reading: Code(s): R03.0 - Elevated blood-pressure reading, without diagnosis of hypertension Status: Acute Assessment and Plan: Persistently elevated. Amlodipine initiated 06/29, increased dose to 10 mg 06/30. (4) Dehydration: Code(s): E86.0 - Dehydration Status: Acute Assessment and Plan: Discontinue IVF Encourage oral hydration (5) Hypokalemia: Code(s): E87.6 - Hypokalemia Status: Acute Assessment and Plan: Replaced, now normal (6) Anxiety: Code(s): F41.9 - Anxiety disorder, unspecified Status: Acute Assessment and Plan: Patient is quite anxious at times, seems to be worse after on the phone with her family members. Continue clonazepam twice daily as needed. Additional Plan Continue with day 5 Remdesivir, Steroids, Baricitinib Pt not doing well enough for any significant weaning today COVID precautions as ordered; discussed code status, at this point pretty clear unterstanding that she is full code wants to advance diet, but may be limited by HFNC, and so clear liquids is likely a good option for right now Time Spent With Patient Time with patient: less than 15 minutes Subjective Date/time seen: 07/02/21 07:48 continued respiratory difficulty, but can engage in conversation feels breathing is improving, but SOB w/o supplemental O2 Can not engage in significant exertion intermittent coughing spells, little if any sputum Review of Systems Review of Systems: All systems reviewed & are unremarkable except as noted in HPI and below Exam Const: General: no acute distress Neck: Neck: no JVD Resp: Other: continued resp difficulty crackles in all lung fileds requiring HF NC Cardio: Rate: regular rate Rhythm: regular rhythm GI: GI Palp: Yes Soft to palpation and No Tenderness to palpation present (GI) Objective Data Vital Signs Vital Signs: Vital Signs - 24 hr 07/01/21 08:00 07/01/21 10:00 07/01/21 10:10 Temperature 97.5 F L Pulse Rate 79 87 84 Respiratory Rate 26 H 20 Blood Pressure 125/82 Pulse Oximetry 99 07/01/21 10:21 07/01/21 12:00 07/01/21 14:00 Temperature 98.2 F Pulse Rate 95 98 Respiratory Rate 24 H Blood Pressure 131/72 Pulse Oximetry 95 92 07/01/21 15:12 07/01/21 15:21 07/01/21 16:00 Temperature 98.2 F Pulse Rate 96 Respiratory Rate 22 H Blood Pressure 114/64 Pulse Oximetry 95 96 96 07/01/21 18:00 07/01/21 20:00 07/01/21 21:59 Temperature 98.5 F Pulse Rate 98 97 94 Respiratory Rate 22 H Blood Pressure 119/76 Pulse Oximetry 94 07/01/21 22:37 07/01/21 22:38 07/02/21 00:00 Temperature 97.9 F Pulse Rate 93 91 Respiratory Rate 16 20 Blood Pressure 129/72 Pulse Oximetry 98 95 07/02/21 03:09 07/02/21 04:00 Temperature 98.2 F Pulse Rate 78 Respiratory Rate 20 Blood Pressure 128/74 Pulse Oximetry 95 97 Intake/Output Intake/Output: Intake & Output 06/29/21 06/30/21 07/01/21 07/02/21 23:59 23:59 23:59 23:59 Intake Total 562 062 9114 Output Total 2600 2835 2750 550 Balance -2050 -455 -470 -550 Meds/
[2021-07-02 08:12] LABS: Basophils Absolute Auto 0.1 K/mm3 (0.0-0.1); Basophils Percent Auto 0.4 % (0.2-1.2); Eosinophils Percent Auto 0.1 % (0-4.4); Hemoglobin 13.3 g/dL (12.0-15.0); Immature Granulocyte Absolute 0.39 K/mm3 (0.00-0.031); Immature Granulocyte Percent A 3.3 % (0-0.5); Lymphocytes Absolute Auto 1.17 K/mm3 (0.9-3.2); Mean Corpuscular HGB Conc 33.3 g/dl (32-36); Mean Corpuscular Hemoglobin 30.3 pg (26-34); Mean Corpuscular Volume 91.1 fl (80-100); Mean Platelet Volume 9.3 fl (7.4-10.4); Monocytes Absolute Auto 0.9 K/mm3 (0.1-0.6); Monocytes Percent Auto 7.9 % (2.6-8.5); Neutrophils Absolute Auto 9.1 K/mm3 (1.3-6.7); Neutrophils Percent Auto 78.3 % (45.5-73.1); Platelet Count Result 328 k/mm3 (150-375); Red Blood Count 4.39 M/mm3 (4.2-5.4); Red Cell Distribution Width 13.2 % (11.5-14.5); White Blood Count 11.7 K/mm3 (4.5-10.0)
[2021-07-02 09:08] LABS: Alanine Aminotransferase 27 U/L (4-35); Estimated CRCL calculation 107 ml/min; Estimated Glomerular Filt Rate > 60
[2021-07-02] MEDS: BUDESONIDE RESPULE NEB 0.5 MG/2 ML AMP INHALATION ×2 (09:15→22:19)
[2021-07-02] MEDS: ALBUTEROL SULFATE (*SP) AEROSOL 1 PUFF 2 PUFF INHALATION ×4 (09:16→22:18)
[2021-07-02 09:39] LABS: Procalcitonin 0.1 ng/mL
[2021-07-02] MEDS: ENOXAPARIN 40 MG/0.4 ML SYRINGE SUB-Q (10:00)
[2021-07-02] MEDS: amLODIPine BESYLATE 5 MG TABLET 10 MG PO (10:02)
[2021-07-02] MEDS: BARICITINIB 2 MG TABLET 4 MG PO (10:02)
--- NOTE | 2021-07-02 13:00 | PCDIET ---
Addendum entered by Alissa Leonard RD, BONYN 07/05/21 12:40: Follow up in 5 days. Original Note: Nutrition Follow-Up Complete: Nutrition Diagnosis: Suboptimal oral intake related to COVID pneumonia as evidenced by minimal intake on clear liquid diet since admission. Nutrition Goal: Patient to meet estimated nutritional needs. Goal not met, though overall intakes improved. Recommend advancing diet as tolerated, if medically appropriate. Last recorded weight is 88.4 kg which is increased from last review. Bowel Motility: No documented BM as of yet. Labs Reviewed: WBC (11.7), Cr (0.5) Meds Noted: Proventil, Pulmicort, Decadron, Norvasc, Olumiant Additional Notes: No documented skin breakdown. Will continue to monitor with same goal. Nutrition Monitoring and Evaluation: Follow up every 3 days.
[2021-07-03] VITALS (16 sets, daily range): BP systolic 116–131; BP diastolic 60–76; PULSE 78–110; RESP 22–28; TEMP 36.2–37.8; O2SAT 93–98
[2021-07-03 05:00] LABS: Basophils Percent Auto 0.4 % (0.2-1.2); Hematocrit 38.6 % (37.0-47.0); Hemoglobin 12.8 g/dL (12.0-15.0); Immature Granulocyte Absolute 0.47 K/mm3 (0.00-0.031); Immature Granulocyte Percent A 4.4 % (0-0.5); Lymphocytes Absolute Auto 0.96 K/mm3 (0.9-3.2); Mean Corpuscular HGB Conc 33.2 g/dl (32-36); Mean Corpuscular Hemoglobin 29.6 pg (26-34); Mean Corpuscular Volume 89.4 fl (80-100); Mean Platelet Volume 9.1 fl (7.4-10.4); Neutrophils Absolute Auto 8.2 K/mm3 (1.3-6.7); Neutrophils Percent Auto 77.2 % (45.5-73.1); Platelet Count Result 362 k/mm3 (150-375); Red Blood Count 4.32 M/mm3 (4.2-5.4); Red Cell Distribution Width 13.1 % (11.5-14.5); White Blood Count 10.6 K/mm3 (4.5-10.0)
[2021-07-03 05:13] LABS: Alanine Aminotransferase 28 U/L (4-35); Albumin Level 3.4 g/dL (3.5-5.1); Alkaline Phosphatase 81 U/L (38-126); Anion Gap 7 mmol/L (8-16); Aspartate Amino Transferase 39 U/L (14-36); Bilirubin,Total 0.9 mg/dL (0.2-1.3); Blood Urea Nitrogen 17 mg/dL (7-17); Calcium 8.7 mg/dL (8.4-10.2); Carbon Dioxide 31 mmol/L (22-30); Chloride 99 mmol/L (98-107); Estimated CRCL calculation 107 ml/min; Estimated Glomerular Filt Rate > 60; Glucose 102 mg/dL (65-110); Magnesium 2.2 mg/dL (1.6-2.3); Potassium 3.9 mmol/L (3.4-5.0); Sodium 137 mmol/L (137-145)
--- NOTE | 2021-07-03 07:48 | PM.IMPN ---
Progress Note: A&P Assessment and Plan (1) Acute respiratory failure with hypoxia: Code(s): J96.01 - Acute respiratory failure with hypoxia Status: Acute Assessment and Plan: Secondary to extensive COVID pneumonia noted on chest CT. Initially needed BiPAP intermittently, weaning down, continues to need high-flow oxygen currently. Patient amenable to intubation if needed - full code noted in chart Albuterol MDI and Pulmicort scheduled (2) Pneumonia due to COVID-19 virus: Code(s): U07.1 - COVID-19; J12.82 - Pneumonia due to coronavirus disease 2018 Status: Acute Assessment and Plan: Chest CT shows extensive acute to subacute COVID pneumonia. Continue dexamethasone, remdesivir, and baricitinib 06/28- Continue contact, droplet, and airborne isolation precautions. (3) Elevated blood pressure reading: Code(s): R03.0 - Elevated blood-pressure reading, without diagnosis of hypertension Status: Acute Assessment and Plan: Persistently elevated. Amlodipine initiated 06/29, increased dose to 10 mg 06/30. (4) Dehydration: Code(s): E86.0 - Dehydration Status: Acute Assessment and Plan: Discontinue IVF Encourage oral hydration (5) Hypokalemia: Code(s): E87.6 - Hypokalemia Status: Acute Assessment and Plan: Replaced, now normal (6) Anxiety: Code(s): F41.9 - Anxiety disorder, unspecified Status: Acute Assessment and Plan: Patient is quite anxious at times, seems to be worse after on the phone with her family members. Continue clonazepam twice daily as needed. Additional Plan discuss in detail with her diet today we will slowly advance to full liquid and see how she does maybe advance further tomorrow based on how she tolerates Time Spent With Patient Time with patient: less than 15 minutes Subjective Date/time seen: 07/03/21 07:48 continues to require HFNC No additional change in status - some intermittent coughing Review of Systems Review of Systems: All systems reviewed & are unremarkable except as noted in HPI and below Exam Const: General: no acute distress Neck: Neck: no JVD Resp: Other: congested, diffuse crackles consistent with edema or covid, HFNC for O2 supplement Cardio: Rate: regular rate Rhythm: regular rhythm GI: GI Palp: Yes Soft to palpation and No Tenderness to palpation present (GI) Objective Data Vital Signs Vital Signs: Vital Signs - 24 hr 07/02/21 07:55 07/02/21 08:00 07/02/21 09:16 Temperature 97.8 F Pulse Rate 93 94 103 H Respiratory Rate 22 H 16 Blood Pressure 135/83 Pulse Oximetry 92 94 93 07/02/21 09:30 07/02/21 10:00 07/02/21 11:41 Temperature 98.5 F Pulse Rate 100 95 98 Respiratory Rate 16 24 H Blood Pressure 117/67 Pulse Oximetry 90 07/02/21 12:00 07/02/21 12:57 07/02/21 14:00 Temperature Pulse Rate 96 107 H Respiratory Rate Blood Pressure Pulse Oximetry 93 94 07/02/21 15:58 07/02/21 16:00 07/02/21 20:00 Temperature 98.5 F 97.9 F Pulse Rate 120 H 99 103 H Respiratory Rate 22 H 22 H Blood Pressure 116/66 113/65 Pulse Oximetry 93 98 97 07/02/21 22:00 07/02/21 22:15 07/02/21 22:32 Temperature Pulse Rate 84 105 H 103 H Respiratory Rate 16 16 Blood Pressure Pulse Oximetry 96 07/02/21 23:20 07/03/21 00:00 07/03/21 02:00 Temperature 98.2 F Pulse Rate 100 101 H 93 Respiratory Rate 22 H 22 H Blood Pressure 123/68 Pulse Oximetry 97 97 07/03/21 04:00 07/03/21 06:00 Temperature 97.9 F Pulse Rate 99 96 Respiratory Rate 22 H Blood Pressure 120/60 Pulse Oximetry 97 Intake/Output Intake/Output: Intake & Output 06/30/21 07/01/21 07/02/21 07/03/21 23:59 23:59 23:59 23:59 Intake Total 620 2280 2160 Output Total 1079 2750 1750 1000 Balance -455 -470 410 -1000 Meds/Results Medications: Active Medications Generic Name Dose Route Start Last Admin Trade Name Freq PRN
[2021-07-03] MEDS: ALBUTEROL SULFATE (*SP) AEROSOL 1 PUFF 2 PUFF INHALATION ×3 (09:47→17:30)
[2021-07-03] MEDS: BARICITINIB 2 MG TABLET 4 MG PO (10:58)
[2021-07-03] MEDS: amLODIPine BESYLATE 5 MG TABLET 10 MG PO (10:58)
[2021-07-03] MEDS: ENOXAPARIN 40 MG/0.4 ML SYRINGE SUB-Q (10:58)
[2021-07-03] MEDS: clonazePAM (*CRX) 0.5 MG TABLET 1 MG PO (20:53)
--- NOTE | 2021-07-03 23:30 | PCRCNOTE ---
Window of time for administration has passed. See next scheduled administration.
[2021-07-04] VITALS (16 sets, daily range): BP systolic 106–115; BP diastolic 57–75; PULSE 72–111; RESP 16–28; TEMP 36.5–37.6; O2SAT 94–100
[2021-07-04 05:13] LABS: Basophils Percent Auto 0.3 % (0.2-1.2); Eosinophils Percent Auto 0.1 % (0-4.4); Hematocrit 40.9 % (37.0-47.0); Hemoglobin 13.2 g/dL (12.0-15.0); Immature Granulocyte Absolute 0.46 K/mm3 (0.00-0.031); Immature Granulocyte Percent A 4.2 % (0-0.5); Lymphocytes Absolute Auto 0.86 K/mm3 (0.9-3.2); Lymphocytes Percent Auto 7.8 % (18.3-44.2); Mean Corpuscular HGB Conc 32.3 g/dl (32-36); Mean Corpuscular Hemoglobin 30.1 pg (26-34); Mean Corpuscular Volume 93.2 fl (80-100); Monocytes Percent Auto 9.2 % (2.6-8.5); Neutrophils Absolute Auto 8.6 K/mm3 (1.3-6.7); Neutrophils Percent Auto 78.4 % (45.5-73.1); Platelet Count Result 389 k/mm3 (150-375); Red Blood Count 4.39 M/mm3 (4.2-5.4); Red Cell Distribution Width 13.5 % (11.5-14.5)
[2021-07-04 05:37] LABS: Alanine Aminotransferase 35 U/L (4-35); Albumin Level 3.5 g/dL (3.5-5.1); Alkaline Phosphatase 80 U/L (38-126); Anion Gap 7 mmol/L (8-16); Aspartate Amino Transferase 41 U/L (14-36); Bilirubin,Total 0.8 mg/dL (0.2-1.3); Blood Urea Nitrogen 18 mg/dL (7-17); Calcium 8.8 mg/dL (8.4-10.2); Carbon Dioxide 33 mmol/L (22-30); Chloride 99 mmol/L (98-107); Estimated CRCL calculation 107 ml/min; Estimated Glomerular Filt Rate > 60; Glucose 94 mg/dL (65-110); Magnesium 2.4 mg/dL (1.6-2.3); Phosphorus 3.8 mg/dL (2.5-4.5); Potassium 4.2 mmol/L (3.4-5.0); Sodium 139 mmol/L (137-145)
--- NOTE | 2021-07-04 09:16 | PM.IMPN ---
Progress Note: A&P Assessment and Plan (1) Acute respiratory failure with hypoxia: Code(s): J96.01 - Acute respiratory failure with hypoxia Status: Acute Assessment and Plan: Secondary to extensive COVID pneumonia noted on chest CT. Initially needed BiPAP intermittently, weaning down, continues to need high-flow oxygen currently. Patient amenable to intubation if needed - full code noted in chart Albuterol MDI and Pulmicort scheduled (2) Pneumonia due to COVID-19 virus: Code(s): U07.1 - COVID-19; J12.82 - Pneumonia due to coronavirus disease 2018 Status: Acute Assessment and Plan: Chest CT shows extensive acute to subacute COVID pneumonia. Continue dexamethasone, remdesivir, and baricitinib 06/28- Continue contact, droplet, and airborne isolation precautions. (3) Elevated blood pressure reading: Code(s): R03.0 - Elevated blood-pressure reading, without diagnosis of hypertension Status: Acute Assessment and Plan: Persistently elevated. Amlodipine initiated 06/29, increased dose to 10 mg 06/30. (4) Dehydration: Code(s): E86.0 - Dehydration Status: Acute Assessment and Plan: Discontinue IVF Encourage oral hydration (5) Hypokalemia: Code(s): E87.6 - Hypokalemia Status: Acute Assessment and Plan: Replaced, now normal (6) Anxiety: Code(s): F41.9 - Anxiety disorder, unspecified Status: Acute Assessment and Plan: Patient is quite anxious at times, seems to be worse after on the phone with her family members. Continue clonazepam twice daily as needed. Additional Plan tolerating diet for the moment - proceed cautiously continue repiratory support, doing well decreasing the FiO2 slightly from 60 to 50 - ctm and may be able to lessen O2 requirement a little more later today Time Spent With Patient Time with patient: less than 15 minutes Subjective Date/time seen: 07/04/21 09:16 able to converse no significant change in medical condition Review of Systems Review of Systems: All systems reviewed & are unremarkable except as noted in HPI and below Exam Const: General: no acute distress Neck: Neck: no JVD Resp: Other: diffsue crackles breathing with HFNC Cardio: Rate: regular rate Rhythm: regular rhythm GI: GI Palp: Yes Soft to palpation and No Tenderness to palpation present (GI) Objective Data Vital Signs Vital Signs: Vital Signs - 24 hr 07/03/21 09:23 07/03/21 09:35 07/03/21 10:00 Temperature Pulse Rate 110 H 109 H 94 Respiratory Rate 28 H Blood Pressure Pulse Oximetry 96 07/03/21 12:00 07/03/21 14:00 07/03/21 14:08 Temperature 100.0 F H Pulse Rate 93 105 H Respiratory Rate 26 H Blood Pressure 120/71 Pulse Oximetry 94 95 07/03/21 16:00 07/03/21 18:00 07/03/21 19:45 Temperature 99.9 F H Pulse Rate 105 H 108 H 78 Respiratory Rate 24 H Blood Pressure 116/70 Pulse Oximetry 97 96 07/03/21 20:00 07/03/21 22:00 07/04/21 00:00 Temperature 97.7 F 98.0 F Pulse Rate 104 H 91 74 Respiratory Rate 24 H 24 H Blood Pressure 122/76 106/75 Pulse Oximetry 96 96 07/04/21 02:00 07/04/21 04:00 07/04/21 06:00 Temperature 97.7 F Pulse Rate 73 86 89 Respiratory Rate 28 H Blood Pressure 111/65 Pulse Oximetry 98 07/04/21 08:00 Temperature 97.9 F Pulse Rate 91 Respiratory Rate 16 Blood Pressure 115/64 Pulse Oximetry 94 Intake/Output Intake/Output: Intake & Output 07/01/21 07/02/21 07/03/21 07/04/21 23:59 23:59 23:59 23:59 Intake Total 2280 2160 1030 300 Output Total 2750 1750 6613 [address] [place] [address] 998 -2245 -857 Meds/Results Medications: Active Medications Generic Name Dose Route Start Last Admin Trade Name Freq PRN Reason Stop Dose Admin Acetaminophen 650 mg 06/30/21 21:30 07/01/21 20:23 Acetaminophen 325 Mg Tablet PO 650 mg Q4H PRN Administration Mild Pain (1-3) or Fever Albuterol 2 puff
[2021-07-04] MEDS: amLODIPine BESYLATE 5 MG TABLET 10 MG PO (10:35)
[2021-07-04] MEDS: ENOXAPARIN 40 MG/0.4 ML SYRINGE SUB-Q (10:35)
[2021-07-04] MEDS: BARICITINIB 2 MG TABLET 4 MG PO (10:36)
[2021-07-04] MEDS: ALBUTEROL SULFATE (*SP) AEROSOL 1 PUFF 2 PUFF INHALATION ×3 (13:43→21:00)
[2021-07-04] MEDS: BUDESONIDE RESPULE NEB 0.5 MG/2 ML AMP INHALATION (21:05)
[2021-07-04] MEDS: clonazePAM (*CRX) 0.5 MG TABLET 1 MG PO (21:56)
[2021-07-05] VITALS (18 sets, daily range): BP systolic 92–120; BP diastolic 50–78; PULSE 69–111; RESP 18–20; TEMP 36.3–37.2; O2SAT 92–100
[2021-07-05 05:10] LABS: Basophils Percent Auto 0.3 % (0.2-1.2); Eosinophils Percent Auto 0.1 % (0-4.4); Hematocrit 38.2 % (37.0-47.0); Hemoglobin 12.5 g/dL (12.0-15.0); Immature Granulocyte Absolute 0.39 K/mm3 (0.00-0.031); Immature Granulocyte Percent A 3.5 % (0-0.5); Lymphocytes Absolute Auto 1.12 K/mm3 (0.9-3.2); Mean Corpuscular HGB Conc 32.7 g/dl (32-36); Mean Corpuscular Hemoglobin 30.5 pg (26-34); Mean Corpuscular Volume 93.2 fl (80-100); Mean Platelet Volume 9.4 fl (7.4-10.4); Monocytes Percent Auto 9.1 % (2.6-8.5); Neutrophils Absolute Auto 8.6 K/mm3 (1.3-6.7); Platelet Count Result 363 k/mm3 (150-375); Red Cell Distribution Width 13.3 % (11.5-14.5); White Blood Count 11.2 K/mm3 (4.5-10.0)
[2021-07-05 05:31] LABS: Alanine Aminotransferase 32 U/L (4-35); Albumin Level 3.2 g/dL (3.5-5.1); Alkaline Phosphatase 72 U/L (38-126); Anion Gap 5 mmol/L (8-16); Aspartate Amino Transferase 37 U/L (14-36); Bilirubin,Total 0.8 mg/dL (0.2-1.3); Blood Urea Nitrogen 18 mg/dL (7-17); Calcium 8.7 mg/dL (8.4-10.2); Carbon Dioxide 31 mmol/L (22-30); Chloride 100 mmol/L (98-107); Estimated CRCL calculation 107 ml/min; Estimated Glomerular Filt Rate > 60; Glucose 97 mg/dL (65-110); Magnesium 2.4 mg/dL (1.6-2.3); Potassium 4.4 mmol/L (3.4-5.0); Sodium 136 mmol/L (137-145)
--- NOTE | 2021-07-05 07:39 | PM.IMPN ---
Progress Note: A&P Assessment and Plan (1) Acute respiratory failure with hypoxia: Code(s): J96.01 - Acute respiratory failure with hypoxia Status: Acute Assessment and Plan: Secondary to extensive COVID pneumonia noted on chest CT. Initially needed BiPAP intermittently, weaning down, continues to need high-flow oxygen currently. Patient amenable to intubation if needed - full code noted in chart Albuterol MDI and Pulmicort scheduled (2) Pneumonia due to COVID-19 virus: Code(s): U07.1 - COVID-19; J12.82 - Pneumonia due to coronavirus disease 2018 Status: Acute Assessment and Plan: Chest CT shows extensive acute to subacute COVID pneumonia. Continue dexamethasone, remdesivir, and baricitinib 06/28- Continue contact, droplet, and airborne isolation precautions. (3) Elevated blood pressure reading: Code(s): R03.0 - Elevated blood-pressure reading, without diagnosis of hypertension Status: Acute Assessment and Plan: Persistently elevated. Amlodipine initiated 06/29, increased dose to 10 mg 06/30. (4) Dehydration: Code(s): E86.0 - Dehydration Status: Acute Assessment and Plan: Discontinue IVF Encourage oral hydration (5) Hypokalemia: Code(s): E87.6 - Hypokalemia Status: Acute Assessment and Plan: Replaced, now normal (6) Anxiety: Code(s): F41.9 - Anxiety disorder, unspecified Status: Acute Assessment and Plan: Patient is quite anxious at times, seems to be worse after on the phone with her family members. Continue clonazepam twice daily as needed. Additional Plan Weaning FiO2, slowly advancing diet per patient request - discussed dangers of going too fast, ie aspiration Time Spent With Patient Time with patient: less than 15 minutes Subjective Date/time seen: 07/05/21 07:39 slowly improving breathing decreasing FiO2 on HFNC no subjective fevers, CP Review of Systems Review of Systems: All systems reviewed & are unremarkable except as noted in HPI and below Exam Const: General: no acute distress Neck: Neck: no JVD Resp: Effort & Inspection: normal respiratory effort Auscultation: clear to auscultation bilaterally Cardio: Rate: regular rate Rhythm: regular rhythm GI: GI Palp: Yes Soft to palpation and No Tenderness to palpation present (GI) Objective Data Vital Signs Vital Signs: Vital Signs - 24 hr 07/04/21 08:00 07/04/21 10:00 07/04/21 11:47 Temperature 97.9 F 98.5 F Pulse Rate 93 105 H 97 Respiratory Rate 16 18 Blood Pressure 115/64 113/67 Pulse Oximetry 97 95 07/04/21 12:00 07/04/21 13:43 07/04/21 14:00 Temperature Pulse Rate 101 H 101 H Respiratory Rate Blood Pressure Pulse Oximetry 97 96 07/04/21 16:00 07/04/21 16:55 07/04/21 17:11 Temperature 98.9 F Pulse Rate 111 H Respiratory Rate 18 Blood Pressure 107/57 L Pulse Oximetry 97 99 97 07/04/21 18:00 07/04/21 20:00 07/04/21 22:00 Temperature 99.7 F H Pulse Rate 108 H 110 H 104 H Respiratory Rate 20 Blood Pressure 111/64 Pulse Oximetry 100 07/05/21 00:00 07/05/21 02:00 07/05/21 04:00 Temperature 97.9 F 97.6 F Pulse Rate 72 70 69 Respiratory Rate 20 18 Blood Pressure 111/78 108/64 Pulse Oximetry 100 99 07/05/21 06:00 Temperature Pulse Rate 95 Respiratory Rate Blood Pressure Pulse Oximetry Intake/Output Intake/Output: Intake & Output 07/02/21 07/03/21 07/04/21 07/05/21 23:59 23:59 23:59 23:59 Intake Total 2160 1030 2900 400 Output Total 1750 3275 1725 900 Balance 410 -2245 1175 -500 Meds/Results Medications: Active Medications Generic Name Dose Route Start Last Admin Trade Name Shadiq PRN Reason Stop Dose Admin Acetaminophen 650 mg 06/30/21 21:30 07/01/21 20:23 Acetaminophen 325 Mg Tablet PO 650 mg Q4H PRN Administration Mild Pain (1-3) or Fever Albuterol 2 puff 06/28/21 08:00 07/04/21 21:00 Albuterol Sulf
[2021-07-05] MEDS: BARICITINIB 2 MG TABLET 4 MG PO (08:17)
[2021-07-05] MEDS: amLODIPine BESYLATE 5 MG TABLET 10 MG PO (08:17)
[2021-07-05] MEDS: ENOXAPARIN 40 MG/0.4 ML SYRINGE SUB-Q (08:17)
[2021-07-05] MEDS: BUDESONIDE RESPULE NEB 0.5 MG/2 ML AMP INHALATION ×2 (08:20→21:20)
[2021-07-05] MEDS: ALBUTEROL SULFATE (*SP) AEROSOL 1 PUFF 2 PUFF INHALATION ×4 (08:20→21:20)
--- NOTE | 2021-07-05 12:37 | PCDIET ---
Nutrition Follow-Up Complete: Nutrition Diagnosis: Suboptimal oral intake related to COVID pneumonia as evidenced by minimal intake on clear liquid diet since admission. Nutrition Goal: Patient to meet estimated nutritional needs. Goal in progress. Spoke with patient via phone. Patient reports appetite has much improved with intake average of 50% of recorded meals since 07/03/21. Patient agreeable to try Ensure Compact (220kcal, 9g protein) BID, as recommended. Heart healthy diet acceptable. Last recorded weight is 88 kg which is stable with last review. Bowel Motility: No documented BM. Would consider medication to promote BM, if medically appropriate. Labs Reviewed: WBC (11.2), RBC (4.10), BUN (18), Cr (0.5), Na (136), Alb (3.2), Mg (2.4) Meds Noted: Albuterol, Norvasc, Klonopin, Olumiant, Pulmicort, Decadron Additional Notes: No documented skin breakdown. Will continue to monitor with same goal. Nutrition Monitoring and Evaluation: Follow up every 5 days.
[2021-07-05] MEDS: clonazePAM (*CRX) 0.5 MG TABLET 1 MG PO (21:55)
[2021-07-06] VITALS (9 sets, daily range): BP systolic 114–131; BP diastolic 52–73; PULSE 78–105; RESP 14–22; TEMP 35.6–36.7; O2SAT 92–97
[2021-07-06 04:48] LABS: Basophils Percent Auto 0.2 % (0.2-1.2); Hematocrit 37.4 % (37.0-47.0); Hemoglobin 12.5 g/dL (12.0-15.0); Immature Granulocyte Absolute 0.31 K/mm3 (0.00-0.031); Immature Granulocyte Percent A 2.4 % (0-0.5); Lymphocytes Absolute Auto 1.06 K/mm3 (0.9-3.2); Lymphocytes Percent Auto 8.2 % (18.3-44.2); Mean Corpuscular HGB Conc 33.4 g/dl (32-36); Mean Corpuscular Hemoglobin 30.5 pg (26-34); Mean Corpuscular Volume 91.2 fl (80-100); Mean Platelet Volume 9.1 fl (7.4-10.4); Monocytes Absolute Auto 1.2 K/mm3 (0.1-0.6); Monocytes Percent Auto 9.6 % (2.6-8.5); Neutrophils Absolute Auto 10.3 K/mm3 (1.3-6.7); Neutrophils Percent Auto 79.6 % (45.5-73.1); Platelet Count Result 386 k/mm3 (150-375); Red Cell Distribution Width 13.2 % (11.5-14.5)
[2021-07-06 04:57] LABS: Alanine Aminotransferase 30 U/L (4-35); Albumin Level 3.3 g/dL (3.5-5.1); Alkaline Phosphatase 76 U/L (38-126); Anion Gap 4 mmol/L (8-16); Aspartate Amino Transferase 33 U/L (14-36); Bilirubin,Total 0.8 mg/dL (0.2-1.3); Blood Urea Nitrogen 19 mg/dL (7-17); Carbon Dioxide 32 mmol/L (22-30); Chloride 100 mmol/L (98-107); Estimated CRCL calculation 106 ml/min; Estimated Glomerular Filt Rate > 60; Glucose 103 mg/dL (65-110); Magnesium 2.3 mg/dL (1.6-2.3); Phosphorus 3.9 mg/dL (2.5-4.5); Potassium 4.1 mmol/L (3.4-5.0); Sodium 136 mmol/L (137-145)
[2021-07-06] MEDS: amLODIPine BESYLATE 5 MG TABLET 10 MG PO (09:34)
[2021-07-06] MEDS: BARICITINIB 2 MG TABLET 4 MG PO (09:35)
[2021-07-06] MEDS: ENOXAPARIN 40 MG/0.4 ML SYRINGE SUB-Q (09:35)
[2021-07-06] MEDS: ALBUTEROL SULFATE (*SP) AEROSOL 1 PUFF 2 PUFF INHALATION ×4 (10:10→21:17)
[2021-07-06] MEDS: BUDESONIDE RESPULE NEB 0.5 MG/2 ML AMP INHALATION ×2 (10:10→21:17)
--- NOTE | 2021-07-06 12:50 | PC.NURSE ---
This patient, Jenna Malone, was transferred to [ ] on 07/06/21 at 1250. Personal belongings sent with patient. Report given to [ ]. Appropriate documentation sent with patient.
--- NOTE | 2021-07-06 12:50 | PC.NURSE ---
This patient, Jenna Malone, was transferred to [facility] on 07/06/21 at 1250. Personal belongings sent with patient. Report given to MADY Kauffman. Appropriate documentation sent with patient.
--- NOTE | 2021-07-06 13:58 | PM.IMPN ---
Progress Note: A&P Assessment and Plan (1) Acute respiratory failure with hypoxia: Code(s): J96.01 - Acute respiratory failure with hypoxia Status: Acute Assessment and Plan: Secondary to extensive COVID pneumonia noted on chest CT. Initially needed BiPAP intermittently, weaning down, continues to need high-flow oxygen currently. Patient amenable to intubation if needed - full code noted in chart Albuterol MDI and Pulmicort scheduled (2) Pneumonia due to COVID-19 virus: Code(s): U07.1 - COVID-19; J12.82 - Pneumonia due to coronavirus disease 2018 Status: Acute Assessment and Plan: Chest CT shows extensive acute to subacute COVID pneumonia. Continue dexamethasone, remdesivir, and baricitinib 06/28- Continue contact, droplet, and airborne isolation precautions. (3) Elevated blood pressure reading: Code(s): R03.0 - Elevated blood-pressure reading, without diagnosis of hypertension Status: Acute Assessment and Plan: Persistently elevated. Amlodipine initiated 06/29, increased dose to 10 mg 06/30. (4) Dehydration: Code(s): E86.0 - Dehydration Status: Acute Assessment and Plan: Discontinue IVF Encourage oral hydration (5) Hypokalemia: Code(s): E87.6 - Hypokalemia Status: Acute Assessment and Plan: Replaced, now normal (6) Anxiety: Code(s): F41.9 - Anxiety disorder, unspecified Status: Acute Assessment and Plan: Patient is quite anxious at times, seems to be worse after on the phone with her family members. Continue clonazepam twice daily as needed. Additional Plan improving covid symptoms weaning off oxygen continue covid management as ordered Subjective Date/time seen: 07/06/21 13:58 resting comfortably, tolerating HFNC. Review of Systems Review of Systems: All systems reviewed & are unremarkable except as noted in HPI and below Exam Const: General: no acute distress Neck: Neck: no JVD Resp: Effort & Inspection: normal respiratory effort Auscultation: clear to auscultation bilaterally Cardio: Rate: regular rate Rhythm: regular rhythm GI: GI Palp: Yes Soft to palpation and No Tenderness to palpation present (GI) Objective Data Vital Signs Vital Signs: Vital Signs - 24 hr 07/05/21 14:00 07/05/21 16:00 07/05/21 19:59 Temperature 99 F 97.8 F Pulse Rate 107 H 102 H 111 H Respiratory Rate 18 20 Blood Pressure 113/61 116/50 L Pulse Oximetry 96 96 07/05/21 20:00 07/05/21 21:20 07/05/21 21:43 Temperature Pulse Rate 101 H Respiratory Rate Blood Pressure Pulse Oximetry 96 92 07/05/21 23:50 07/06/21 04:00 07/06/21 08:00 Temperature 97.5 F L Pulse Rate 78 Respiratory Rate 20 20 Blood Pressure 125/52 L Pulse Oximetry 97 97 07/06/21 09:21 07/06/21 10:17 07/06/21 10:27 Temperature 96.0 F L Pulse Rate 86 104 H 103 H Respiratory Rate 18 18 18 Blood Pressure 117/71 Pulse Oximetry 97 93 07/06/21 12:25 Temperature 97.4 F L Pulse Rate 102 H Respiratory Rate 14 Blood Pressure 131/65 Pulse Oximetry 95 Intake/Output Intake/Output: Intake & Output 07/03/21 07/04/21 07/05/21 07/06/21 23:59 23:59 23:59 23:59 Intake Total 1030 2900 1060 970 Output Total 3275 1725 1900 950 Balance -2245 1175 -840 20 Meds/Results Medications: Active Medications Generic Name Dose Route Start Last Admin Trade Name Freq PRN Reason Stop Dose Admin Acetaminophen 650 mg 06/30/21 21:30 07/01/21 20:23 Acetaminophen 325 Mg Tablet PO 650 mg Q4H PRN Administration Mild Pain (1-3) or Fever Albuterol 2 puff 06/28/21 08:00 07/06/21 12:45 Albuterol Sulfate (*Sp) Aerosol 1 Puff INHALATION 2 puff QIDRT SEEMA Administration Amlodipine Besylate 10 mg 06/30/21 09:40 07/06/21 09:34 Amlodipine Besylate 5 Mg Tablet PO 10 mg QAM SEEMA Administration Artificial Tears 1 drop 07/01/21 09:10 07/01/21 10:09 Artificial Tears Op
[2021-07-06] MEDS: ALBUTEROL SULFATE NEB 2.5 MG/0.5 ML INH (21:17)
[2021-07-06] MEDS: clonazePAM (*CRX) 0.5 MG TABLET 1 MG PO (21:45)
[2021-07-07] VITALS (12 sets, daily range): BP systolic 105–140; BP diastolic 61–97; PULSE 72–106; RESP 12–22; TEMP 36.6–37.2; O2SAT 94–98
[2021-07-07 07:49] LABS: Basophils Percent Auto 0.2 % (0.2-1.2); Eosinophils Percent Auto 0.1 % (0-4.4); Hematocrit 39.3 % (37.0-47.0); Hemoglobin 12.6 g/dL (12.0-15.0); Immature Granulocyte Absolute 0.24 K/mm3 (0.00-0.031); Immature Granulocyte Percent A 1.8 % (0-0.5); Lymphocytes Absolute Auto 1.27 K/mm3 (0.9-3.2); Lymphocytes Percent Auto 9.6 % (18.3-44.2); Mean Corpuscular HGB Conc 32.1 g/dl (32-36); Mean Corpuscular Hemoglobin 30.5 pg (26-34); Mean Corpuscular Volume 95.2 fl (80-100); Mean Platelet Volume 9.5 fl (7.4-10.4); Monocytes Absolute Auto 1.5 K/mm3 (0.1-0.6); Monocytes Percent Auto 11.5 % (2.6-8.5); Neutrophils Absolute Auto 10.1 K/mm3 (1.3-6.7); Neutrophils Percent Auto 76.8 % (45.5-73.1); Platelet Count Result 413 k/mm3 (150-375); Red Blood Count 4.13 M/mm3 (4.2-5.4); Red Cell Distribution Width 13.4 % (11.5-14.5); White Blood Count 13.2 K/mm3 (4.5-10.0)
[2021-07-07 08:04] LABS: Chloride 98 mmol/L (98-107)
[2021-07-07 08:15] LABS: Alanine Aminotransferase 28 U/L (4-35); Albumin Level 3.5 g/dL (3.5-5.1); Alkaline Phosphatase 78 U/L (38-126); Anion Gap 5 mmol/L (8-16); Aspartate Amino Transferase 40 U/L (14-36); Blood Urea Nitrogen 17 mg/dL (7-17); Calcium 8.7 mg/dL (8.4-10.2); Carbon Dioxide 34 mmol/L (22-30); Estimated CRCL calculation 106 ml/min; Estimated Glomerular Filt Rate > 60; Glucose 81 mg/dL (65-110); Magnesium 2.3 mg/dL (1.6-2.3); Phosphorus 3.3 mg/dL (2.5-4.5); Potassium 3.3 mmol/L (3.4-5.0); Sodium 137 mmol/L (137-145)
[2021-07-07] MEDS: ALBUTEROL SULFATE (*SP) AEROSOL 1 PUFF 2 PUFF INHALATION ×4 (08:51→20:46)
[2021-07-07] MEDS: BUDESONIDE RESPULE NEB 0.5 MG/2 ML AMP INHALATION ×2 (08:51→20:46)
--- NOTE | 2021-07-07 09:02 | PM.IMPN ---
Progress Note: A&P Assessment and Plan (1) Acute respiratory failure with hypoxia: Code(s): J96.01 - Acute respiratory failure with hypoxia Status: Acute Assessment and Plan: Secondary to extensive COVID pneumonia noted on chest CT. Initially needed BiPAP intermittently, weaning down, continues to need high-flow oxygen currently. Patient amenable to intubation if needed - full code noted in chart Albuterol MDI and Pulmicort scheduled (2) Pneumonia due to COVID-19 virus: Code(s): U07.1 - COVID-19; J12.82 - Pneumonia due to coronavirus disease 2018 Status: Acute Assessment and Plan: Chest CT shows extensive acute to subacute COVID pneumonia. Continue contact, droplet, and airborne isolation precautions. (3) Elevated blood pressure reading: Code(s): R03.0 - Elevated blood-pressure reading, without diagnosis of hypertension Status: Acute Assessment and Plan: Persistently elevated. Amlodipine initiated 06/29, increased dose to 10 mg 06/30. (4) Dehydration: Code(s): E86.0 - Dehydration Status: Acute Assessment and Plan: Discontinue IVF Encourage oral hydration (5) Hypokalemia: Code(s): E87.6 - Hypokalemia Status: Acute Assessment and Plan: Replaced, now normal (6) Anxiety: Code(s): F41.9 - Anxiety disorder, unspecified Status: Acute Assessment and Plan: Patient is quite anxious at times, seems to be worse after on the phone with her family members. Continue clonazepam twice daily as needed. Additional Plan Hypoxic repiratory failure related to COVID infection done with remdesivir and dexamethasone still a few days left of baricitinib weaned O2 all the way down to 4L - no baseline supplemental O2 req Time Spent With Patient Time with patient: less than 15 minutes Subjective Date/time seen: 07/07/21 09:02 improving significantly breathing well on 4L NC Review of Systems Review of Systems: All systems reviewed & are unremarkable except as noted in HPI and below Exam Const: General: no acute distress Neck: Neck: no JVD Resp: Effort & Inspection: normal respiratory effort Auscultation: clear to auscultation bilaterally Cardio: Rate: regular rate Rhythm: regular rhythm GI: GI Palp: Yes Soft to palpation and No Tenderness to palpation present (GI) Objective Data Vital Signs Vital Signs: Vital Signs - 24 hr 07/06/21 09:21 07/06/21 10:17 07/06/21 10:27 Temperature 96.0 F L Pulse Rate 86 104 H 103 H Respiratory Rate 18 18 18 Blood Pressure 117/71 Pulse Oximetry 97 93 07/06/21 12:25 07/06/21 13:00 07/06/21 16:41 Temperature 97.4 F L 98.0 F Pulse Rate 102 H 105 H Respiratory Rate 14 14 Blood Pressure 131/65 114/69 Pulse Oximetry 95 92 95 07/06/21 20:00 07/07/21 00:00 07/07/21 04:00 Temperature 98.1 F 97.9 F 98.9 F Pulse Rate 96 77 83 Respiratory Rate 22 H 22 H 22 H Blood Pressure 117/73 115/71 105/63 Pulse Oximetry 94 97 95 07/07/21 08:30 07/07/21 08:52 Temperature 97.9 F Pulse Rate 72 104 H Respiratory Rate 14 18 Blood Pressure 140/97 H Pulse Oximetry 96 97 Intake/Output Intake/Output: Intake & Output 07/04/21 07/05/21 07/06/21 07/07/21 23:59 23:59 23:59 23:59 Intake Total 2900 1060 1570 400 Output Total 1725 1900 950 Balance 1175 -840 620 400 Meds/Results Medications: Active Medications Generic Name Dose Route Start Last Admin Trade Name Freq PRN Reason Stop Dose Admin Acetaminophen 650 mg 06/30/21 21:30 07/01/21 20:23 Acetaminophen 325 Mg Tablet PO 650 mg Q4H PRN Administration Mild Pain (1-3) or Fever Albuterol 2 puff 06/28/21 08:00 07/07/21 08:51 Albuterol Sulfate (*Sp) Aerosol 1 Puff INHALATION 2 puff QIDRT SEEMA Administration Amlodipine Besylate 10 mg 06/30/21 09:40 07/06/21 09:34 Amlodipine Besylate 5 Mg Tablet PO 10 mg QAM SEEMA Administration Artificial Tears 1 drop 07/01/21 09:1
[2021-07-07] MEDS: amLODIPine BESYLATE 5 MG TABLET 10 MG PO (09:48)
[2021-07-07] MEDS: POTASSIUM CHLORIDE 20 MEQ TABLET 40 MEQ PO (09:48)
[2021-07-07] MEDS: ENOXAPARIN 40 MG/0.4 ML SYRINGE SUB-Q (09:49)
[2021-07-07] MEDS: BARICITINIB 2 MG TABLET 4 MG PO (13:13)
[2021-07-07] MEDS: clonazePAM (*CRX) 0.5 MG TABLET 1 MG PO (21:53)
[2021-07-08] VITALS (13 sets, daily range): BP systolic 102–117; BP diastolic 50–67; PULSE 77–99; RESP 16–18; TEMP 35.7–36.7; O2SAT 92–98
[2021-07-08 06:23] LABS: Basophils Percent Auto 0.3 % (0.2-1.2); Hematocrit 37.7 % (37.0-47.0); Immature Granulocyte Absolute 0.24 K/mm3 (0.00-0.031); Immature Granulocyte Percent A 2.1 % (0-0.5); Lymphocytes Absolute Auto 1.34 K/mm3 (0.9-3.2); Lymphocytes Percent Auto 11.9 % (18.3-44.2); Mean Corpuscular HGB Conc 31.8 g/dl (32-36); Mean Corpuscular Hemoglobin 29.7 pg (26-34); Mean Corpuscular Volume 93.3 fl (80-100); Mean Platelet Volume 9.2 fl (7.4-10.4); Monocytes Absolute Auto 1.2 K/mm3 (0.1-0.6); Monocytes Percent Auto 10.7 % (2.6-8.5); Neutrophils Absolute Auto 8.5 K/mm3 (1.3-6.7); Platelet Count Result 429 k/mm3 (150-375); Red Blood Count 4.04 M/mm3 (4.2-5.4); Red Cell Distribution Width 13.4 % (11.5-14.5); White Blood Count 11.3 K/mm3 (4.5-10.0)
[2021-07-08] MEDS: BUDESONIDE RESPULE NEB 0.5 MG/2 ML AMP INHALATION ×2 (08:27→20:40)
[2021-07-08] MEDS: ALBUTEROL SULFATE (*SP) AEROSOL 1 PUFF 2 PUFF INHALATION ×4 (08:27→20:40)
[2021-07-08] MEDS: ENOXAPARIN 40 MG/0.4 ML SYRINGE SUB-Q (10:05)
[2021-07-08] MEDS: amLODIPine BESYLATE 5 MG TABLET 10 MG PO (10:05)
[2021-07-08] MEDS: BARICITINIB 2 MG TABLET 4 MG PO (10:05)
[2021-07-08] MEDS: BENZONATATE 100 MG CAPSULE 200 MG PO (10:06)
--- NOTE | 2021-07-08 10:41 | PM.IMPN ---
Progress Note: A&P Assessment and Plan (1) Acute respiratory failure with hypoxia: Code(s): J96.01 - Acute respiratory failure with hypoxia Status: Acute Assessment and Plan: Secondary to extensive COVID pneumonia noted on chest CT. Initially needed BiPAP intermittently, weaning down, continues to need high-flow oxygen currently. Patient amenable to intubation if needed - full code noted in chart Albuterol MDI and Pulmicort scheduled (2) Pneumonia due to COVID-19 virus: Code(s): U07.1 - COVID-19; J12.82 - Pneumonia due to coronavirus disease 2018 Status: Acute Assessment and Plan: Chest CT shows extensive acute to subacute COVID pneumonia. Continue contact, droplet, and airborne isolation precautions. (3) Elevated blood pressure reading: Code(s): R03.0 - Elevated blood-pressure reading, without diagnosis of hypertension Status: Acute Assessment and Plan: Persistently elevated. Amlodipine initiated 06/29, increased dose to 10 mg 06/30. (4) Dehydration: Code(s): E86.0 - Dehydration Status: Acute Assessment and Plan: Discontinue IVF Encourage oral hydration (5) Hypokalemia: Code(s): E87.6 - Hypokalemia Status: Acute Assessment and Plan: Replaced, now normal (6) Anxiety: Code(s): F41.9 - Anxiety disorder, unspecified Status: Acute Assessment and Plan: Patient is quite anxious at times, seems to be worse after on the phone with her family members. Continue clonazepam twice daily as needed. Additional Plan Hypoxic repiratory failure related to COVID infection done with remdesivir and dexamethasone still a few days left of baricitinib weaned O2 all the way down to 2L - no baseline supplemental O2 req Getting close to discharge Time Spent With Patient Time with patient: less than 15 minutes Subjective Date/time seen: 07/08/21 10:41 breathing improving no acute medical complaints Review of Systems Review of Systems: All systems reviewed & are unremarkable except as noted in HPI and below Exam Const: General: no acute distress Neck: Neck: no JVD Resp: Effort & Inspection: normal respiratory effort Auscultation: clear to auscultation bilaterally Cardio: Rate: regular rate Rhythm: regular rhythm GI: GI Palp: Yes Soft to palpation and No Tenderness to palpation present (GI) Objective Data Vital Signs Vital Signs: Vital Signs - 24 hr 07/07/21 11:57 07/07/21 16:34 07/07/21 20:00 Temperature 98.1 F 98.0 F 98.2 F Pulse Rate 92 84 97 Respiratory Rate 12 12 18 Blood Pressure 108/61 126/75 116/69 Pulse Oximetry 97 96 94 07/07/21 20:46 07/07/21 20:57 07/08/21 00:00 Temperature 97.6 F Pulse Rate 80 78 77 Respiratory Rate 18 Blood Pressure 105/64 Pulse Oximetry 97 97 07/08/21 04:00 07/08/21 08:00 07/08/21 08:28 Temperature 98.1 F 96.2 F L Pulse Rate 87 84 83 Respiratory Rate 16 16 18 Blood Pressure 102/50 L 112/67 Pulse Oximetry 98 95 07/08/21 08:40 07/08/21 08:41 Temperature Pulse Rate 81 Respiratory Rate 18 Blood Pressure Pulse Oximetry 95 Intake/Output Intake/Output: Intake & Output 07/05/21 07/06/21 07/07/21 07/08/21 23:59 23:59 23:59 23:59 Intake Total 1060 1570 2890 240 Output Total 1900 950 Balance -439 890 5101 240 Meds/Results Medications: Active Medications Generic Name Dose Route Start Last Admin Trade Name Freq PRN Reason Stop Dose Admin Acetaminophen 650 mg 06/30/21 21:30 07/01/21 20:23 Acetaminophen 325 Mg Tablet PO 650 mg Q4H PRN Administration Mild Pain (1-3) or Fever Albuterol 2 puff 06/28/21 08:00 07/08/21 08:27 Albuterol Sulfate (*Sp) Aerosol 1 Puff INHALATION 2 puff QIDRT SEEMA Administration Amlodipine Besylate 10 mg 06/30/21 09:40 07/08/21 10:05 Amlodipine Besylate 5 Mg Tablet PO 10 mg QAM SEEMA Administration Artificial Tears 1 drop 07/01/21 09:10 07/01/21 10:09
[2021-07-08] MEDS: clonazePAM (*CRX) 0.5 MG TABLET 1 MG PO ×2 (20:47→23:00)
[2021-07-09] VITALS (12 sets, daily range): BP systolic 112–133; BP diastolic 59–76; PULSE 82–114; RESP 14–20; TEMP 36.1–36.8; O2SAT 90–93
[2021-07-09 06:35] LABS: Basophils Percent Auto 0.2 % (0.2-1.2); Eosinophils Absolute Auto 0.1 K/mm3 (0-0.3); Eosinophils Percent Auto 0.6 % (0-4.4); Hematocrit 38.1 % (37.0-47.0); Hemoglobin 12.5 g/dL (12.0-15.0); Immature Granulocyte Absolute 0.33 K/mm3 (0.00-0.031); Immature Granulocyte Percent A 2.6 % (0-0.5); Lymphocytes Absolute Auto 2.51 K/mm3 (0.9-3.2); Mean Corpuscular HGB Conc 32.8 g/dl (32-36); Mean Corpuscular Hemoglobin 30.4 pg (26-34); Mean Corpuscular Volume 92.7 fl (80-100); Mean Platelet Volume 8.9 fl (7.4-10.4); Monocytes Absolute Auto 1.6 K/mm3 (0.1-0.6); Monocytes Percent Auto 12.5 % (2.6-8.5); Neutrophils Percent Auto 64.1 % (45.5-73.1); Platelet Count Result 353 k/mm3 (150-375); Red Blood Count 4.11 M/mm3 (4.2-5.4); Red Cell Distribution Width 13.6 % (11.5-14.5); White Blood Count 12.6 K/mm3 (4.5-10.0)
[2021-07-09 06:50] LABS: Alanine Aminotransferase 27 U/L (4-35); Albumin Level 3.4 g/dL (3.5-5.1); Alkaline Phosphatase 81 U/L (38-126); Anion Gap 2 mmol/L (8-16); Aspartate Amino Transferase 27 U/L (14-36); Bilirubin,Total 0.8 mg/dL (0.2-1.3); Blood Urea Nitrogen 17 mg/dL (7-17); Calcium 8.8 mg/dL (8.4-10.2); Carbon Dioxide 34 mmol/L (22-30); Chloride 101 mmol/L (98-107); Estimated CRCL calculation 90 ml/min; Estimated Glomerular Filt Rate > 60; Glucose 84 mg/dL (65-110); Magnesium 2.2 mg/dL (1.6-2.3); Phosphorus 3.8 mg/dL (2.5-4.5); Potassium 3.8 mmol/L (3.4-5.0); Sodium 137 mmol/L (137-145)
[2021-07-09] MEDS: ALBUTEROL SULFATE (*SP) AEROSOL 1 PUFF 2 PUFF INHALATION ×3 (08:51→20:17)
[2021-07-09] MEDS: BUDESONIDE RESPULE NEB 0.5 MG/2 ML AMP INHALATION ×2 (08:51→20:35)
[2021-07-09] MEDS: ENOXAPARIN 40 MG/0.4 ML SYRINGE SUB-Q (09:04)
[2021-07-09] MEDS: amLODIPine BESYLATE 5 MG TABLET 10 MG PO (09:05)
[2021-07-09] MEDS: BENZONATATE 100 MG CAPSULE 200 MG PO ×2 (09:07→17:24)
[2021-07-09] MEDS: BARICITINIB 2 MG TABLET 4 MG PO (09:12)
--- NOTE | 2021-07-09 17:14 | PM.IMPN ---
Progress Note: A&P Assessment and Plan (1) Acute respiratory failure with hypoxia: Code(s): J96.01 - Acute respiratory failure with hypoxia Status: Acute Assessment and Plan: Secondary to extensive COVID pneumonia. Previously requiring continuous BiPAP and has now been weaned to room air Continue bronchodilators Treatment for COVID-19 as described below Plan for home O2 eval tomorrow (2) Pneumonia due to COVID-19 virus: Code(s): U07.1 - COVID-19; J12.82 - Pneumonia due to coronavirus disease 2019 Status: Acute Assessment and Plan: Positive test on 06/28/2021. Chest CTA showed extensive COVID pneumonia. Completed remdesivir and dexamethasone Will complete Baricitinib tomorrow Plan for home O2 eval tomorrow Continue isolation precautions Supportive care to include bronchodilators, expectorants, antipyretics, and incentive spirometry She has not been vaccinated for COVID-19. She would like to be. Discussed that she should wait 90 days from onset of infection prior to receiving vaccine. Hopeful discharge tomorrow if continued improvement (3) Elevated blood pressure reading: Code(s): R03.0 - Elevated blood-pressure reading, without diagnosis of hypertension Status: Acute Assessment and Plan: Blood pressure persistently elevated at beginning of hospitalization. Amlodipine initiated on 06/29 Blood pressure has been stable since. Last BP 133/64. (4) Dehydration: Code(s): E86.0 - Dehydration Status: Acute Assessment and Plan: Resolved. Encourage PO intake (5) Hypokalemia: Code(s): E87.6 - Hypokalemia Status: Acute Assessment and Plan: Resolved. (6) Anxiety: Code(s): F41.9 - Anxiety disorder, unspecified Status: Acute Assessment and Plan: No acute issues at this time. Continue clonazepam twice daily as needed. Subjective Date/time seen: 07/09/21 17:14 Interval history: Date of service: 07/09/2021 Jenna Malone is a 61-year-old female with history of anxiety, depression, chronic sinusitis who is seen in follow-up for COVID-19 pneumonia. She is feeling better today. She still endorses GALLEGOS and conversational dyspnea. She has a dry cough and is unable to mobilize secretions. She is having some upper airway congestion today. She denies fever, chills, nausea, vomiting. She was able to get up and ambulate to the bathroom today. She felt a little bit lightheaded with doing so and was dyspneic. She feels constipated has not had a bowel movement in several days. Denies abdominal pain. Denies anosmia or dysgeusia. Her appetite has been good. We talked about that she is continuing discharge and plans for when she returns home. 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 Malone is a well-nourished, well-appearing 61-year-old female who is lying semi recumbent in bed. She appears comfortable and is in NARD. Neuro: awake, alert and oriented x4, speech clear, no focal neuro deficits noted HEENMT: normocephalic, atraumatic, EOMI, sclerae anicteric, moist oral mucosa Neck: supple, no lymphadenopathy Respiratory: Diminished breath sounds bilaterally without crackles, rhonchi, or wheezes, nonlabored breathing, no conversational dyspnea noted Cardio: regular rate, regular rhythm with S1-S2 Abdomen: nondistended, normoactive bowel sounds, soft, nontender to palpation Extremities: no edema, erythema, or tenderness to palpation, DP pulses 2+ bilaterally Skin: no rashes or lesions, warm and dry Psych: appropriate mood and affect, judgment and insight intact Objective Data Vital Signs Vital Signs: Vital Signs - 24 hr 07/08/21 18:18 07/08/21 20:00 07/08/21 20:40 Temperature
[2021-07-09] MEDS: polyethylene glycoL 3350 17 GM POWD.PACK PO (18:13)
[2021-07-09] MEDS: guaiFENesin 12 HR 600 MG TABCR PO (21:25)
[2021-07-09] MEDS: DOCUSATE SODIUM 100 MG CAPSULE PO (21:25)
[2021-07-09] MEDS: ACETAMINOPHEN 325 MG TABLET 650 MG PO (21:28)
[2021-07-10] VITALS (7 sets, daily range): BP systolic 101–125; BP diastolic 56–81; PULSE 84–124; RESP 14–18; TEMP 36.7–37.2; O2SAT 89–96
[2021-07-10 06:20] LABS: Basophils Percent Auto 0.4 % (0.2-1.2); Eosinophils Absolute Auto 0.1 K/mm3 (0-0.3); Eosinophils Percent Auto 1.2 % (0-4.4); Hematocrit 37.9 % (37.0-47.0); Hemoglobin 12.2 g/dL (12.0-15.0); Immature Granulocyte Absolute 0.34 K/mm3 (0.00-0.031); Lymphocytes Absolute Auto 2.29 K/mm3 (0.9-3.2); Lymphocytes Percent Auto 20.2 % (18.3-44.2); Mean Corpuscular HGB Conc 32.2 g/dl (32-36); Mean Corpuscular Hemoglobin 30.5 pg (26-34); Mean Corpuscular Volume 94.8 fl (80-100); Mean Platelet Volume 9.2 fl (7.4-10.4); Monocytes Absolute Auto 1.6 K/mm3 (0.1-0.6); Monocytes Percent Auto 14.1 % (2.6-8.5); Neutrophils Absolute Auto 6.9 K/mm3 (1.3-6.7); Neutrophils Percent Auto 61.1 % (45.5-73.1); Platelet Count Result 332 k/mm3 (150-375); Red Cell Distribution Width 13.7 % (11.5-14.5); White Blood Count 11.4 K/mm3 (4.5-10.0)
[2021-07-10 07:42] LABS: Alanine Aminotransferase 24 U/L (4-35); Estimated CRCL calculation 128 ml/min; Estimated Glomerular Filt Rate > 60
[2021-07-10] MEDS: BARICITINIB 2 MG TABLET 4 MG PO (08:49)
[2021-07-10] MEDS: DOCUSATE SODIUM 100 MG CAPSULE PO (08:50)
[2021-07-10] MEDS: amLODIPine BESYLATE 5 MG TABLET 10 MG PO (08:50)
[2021-07-10] MEDS: polyethylene glycoL 3350 17 GM POWD.PACK PO (08:50)
[2021-07-10] MEDS: guaiFENesin 12 HR 600 MG TABCR PO (08:50)
[2021-07-10] MEDS: ENOXAPARIN 40 MG/0.4 ML SYRINGE SUB-Q (08:50)
[2021-07-10] MEDS: ALBUTEROL SULFATE (*SP) AEROSOL 1 PUFF 2 PUFF INHALATION ×2 (09:13→14:09)
[2021-07-10] MEDS: BUDESONIDE RESPULE NEB 0.5 MG/2 ML AMP INHALATION (09:16)
--- NOTE | 2021-07-10 10:45 | PCNFU ---
Nutrition Follow-Up Complete: Suboptimal oral intake related to COVID pneumonia as evidenced by minimal intake on clear liquid diet since admission. Goal; Patient to meet estimated nutritional needs. Patient has met current goal. No new goal. Pt current nutrition is Heart Healthy. Last recorded weight is 86.4 kg, down from 88.1 kg on admit. Bowel Motility:No BM reported-Colace,Mucinex and Miralax all started today. Labs Reviewed:Cr 0.4 Meds Noted:Noravac,Pulmicort, Miralax, Mucinex, Colace. Additional Notes: Spoke with patient via telephone today due to COVID precautions. Patient states her appetite is improving, Overall intake has been greater than 75% of meals. Diet supplements are being provided of Ensure compact BID, which are being consumed. Agree with diet orders. No further nutritional interventions needed. Follow up every 7 days.
--- NOTE | 2021-07-10 12:09 | HOMEO2EVAL ---
Evaluation was performed at [facility] Home Oxygen Evaluation RC: Home Oxygen (O2) Evaluation Start: 07/10/21 10:31 Freq: ONCE Status: Active Protocol: RPE Activity Type Activity Date Activity User E-Sign Co-Sign Detail Recorded Client Recorded Date Recorded By Document 07/10/21 11:30 ANAND [id number] 07/10/21 12:09 ANAND Document 07/10/21 11:35 ANAND [id number] 07/10/21 12:09 ANAND Document 07/10/21 11:45 ANAND [id number] 07/10/21 12:09 ANAND 07/10/21 07/10/21 07/10/21 11:30 11:35 11:45 Home O2 Evaluation Test Phase Resting Exercise Resting Oxygen Delivery Room Air Room Air Room Air Pulse Oximetry (90-100 %) 94 89 L 93 Pulse Rate (60-100 beats/min) 102 H 124 H 101 H Activity Tolerance Fair Rating of Perceived Dyspnea (PD) +3 Moderate Difficulty, But Can Continue Ambulation Distance (feet) 20 Home Oxygen Evaluation Comments PT APPEARS SOB, NO HOME O2 WEAK, NEEDED NEEDED ASSISTANCE WITH WALK Treatment Charges O2 Evaluation - Inpatient
--- NOTE | 2021-07-10 12:09 | PCRCNOTE ---
HOME O2 EVAL DONE, NONE NEEDED. RN NOTIFIED, PT WEAK, WENT TO EDGE OF BED AND BACK TO CHAIR.
--- NOTE | 2021-07-10 13:55 | PM.DS ---
DS: Admitting Diagnosis Discharge Date 07/10/2021 Admitting Diagnosis COVID-19 DS: Discharge Diagnosis Discharge Diagnosis (1) Acute respiratory failure with hypoxia: Code(s): J96.01 - Acute respiratory failure with hypoxia Status: Acute Assessment and Plan: Secondary to extensive COVID pneumonia. Previously requiring continuous BiPAP and was weaned to room air Treatment for COVID-19 as described below Home O2 eval performed on 07/10 with no need for home oxygen (2) Pneumonia due to COVID-19 virus: Code(s): U07.1 - COVID-19; J12.82 - Pneumonia due to coronavirus disease 2019 Status: Acute Assessment and Plan: Tested positive for COVID on 06/19/2021. Confirmatory test at this facility on 06/28/2021. Chest CTA showed extensive COVID pneumonia. Completed remdesivir and dexamethasone Received 14 doses of Baricitinib Supportive care provided including bronchodilators, expectorants, antipyretics, and incentive spirometry She has not been vaccinated for COVID-19. She would like to be. Discussed that she should wait 90 days from onset of infection prior to receiving vaccine. (3) Hypertension: Code(s): I10 - Essential (primary) hypertension Status: Acute Assessment and Plan: Blood pressure persistently elevated during hospitalization. Amlodipine initiated on 06/29 at 5 mg Uptitrated to 10 mg and BP stabilized. Continue medication and follow-up with PCP for further monitoring. (4) Elevated blood pressure reading: Code(s): R03.0 - Elevated blood-pressure reading, without diagnosis of hypertension Status: Acute Assessment and Plan: Blood pressure persistently elevated at beginning of hospitalization. Amlodipine initiated on 06/29 Blood pressure has been stable since. Last BP 133/64. (5) Dehydration: Code(s): E86.0 - Dehydration Status: Acute Assessment and Plan: Resolved. Tolerating p.o. intake. (6) Hypokalemia: Code(s): E87.6 - Hypokalemia Status: Acute Assessment and Plan: Resolved. (7) Anxiety: Code(s): F41.9 - Anxiety disorder, unspecified Status: Acute Assessment and Plan: She was anxious related to her hospitalization. Continue home clonazepam twice daily as needed. (8) Sinus tachycardia: Code(s): R00.0 - Tachycardia, unspecified Status: Acute Assessment and Plan: She was intermittently mildly tachycardic ranging from 102-110. Suspect related mostly to anxiety. Heart rate improved when she was able to relax. May also be related to albuterol No evidence of PE on CTA EKG reviewed DS: Summary Hospital Course Hospital Course: Date of admission: 06/27/2021 Date of discharge: 07/10/2021 Jenna Malone is a 61-year-old female with a history of anxiety, depression, and chronic sinusitis who presented to the emergency department on 06/27/2021 with complaints fever, chills, dry cough, and decreased oral intake after testing positive for COVID on 06/19/2021. On presentation to the emergency department, she was noted to be hypoxic at 60% on room air and was placed on non-rebreather then started on Airvo due to worsening hypoxia. CBC unremarkable, potassium 3.2, additional electrolytes stable, lactic 1.6, ABG showed hypoxemia, CXR showed diffuse pneumonia, venous Doppler negative, and CTA showed extensive COVID pneumonia with no evidence of PE. She was admitted to the hospitalist service for further evaluation and management. Please see above for further details. She was treated him with IV dexamethasone, Remdesivir, and Baricitinib given hypoxia. She was able to be weaned from BiPAP and eventually was able to tolerate room air. Given lack of need for continued supplemental oxygen and overall symptomatic improvement, she was determined to no longer require inpatient care and was felt to be stable for discharge. She
== END 2021-07-10 15:50 | disposition home or self-care (01) | DRG 177 ==
LOC: ANHED 14:10 → ANHIMU 06-28 12:16 → ANH3MEDSUR 07-09 06:59 → ANHIMU 07-12 10:15
PROVIDERS: Internal Medicine; Internal Medicine Nephrology; Physician Assistant; Admitting Provider Internal Medicine; Emergency Provider Emergency Medicine; PCP Family Medicine; Visit Provider Physician Assistant
DX: U07.1 COVID-19 (principal); J12.82 Pneumonia due to coronavirus disease 2019; J96.01 Acute respiratory failure with hypoxia; E87.1 Hypo-osmolality and hyponatremia; I10 Essential (primary) hypertension; E86.0 Dehydration; E87.6 Hypokalemia; F41.9 Anxiety disorder, unspecified; R00.0 Tachycardia, unspecified; F32.9 Major depressive disorder, single episode, unspecified; D64.9 Anemia, unspecified; J32.9 Chronic sinusitis, unspecified
CPT/HCPCS: 36415; 36430; 36600; 71045; 71275; 80048; 80053; 81001; 82375; 82550; 82565; 82728; 82805; 83050; 83605; 83615; 83735; 83880; 84100; 84145; 84443; 84460; 84484; 85025; 85027; 85380; 85610; 85730; 86140; 86850; 86900; 86901; 87040; 93005; 93971; 94002; 94618; 94640; 94667; 94668; 96361; 96374; 96375; 97162; 97165; 99285; A9270; C9803; J1100; J1650; J2405; J7030; P9059; Q9967; U0003; U0005

== ENCOUNTER → 2021-10-06 00:24 | Outpatient (CLI) | payer OTHER, SELFPAY ==
[2021-10-08 19:58] LABS: SARS-CoV-2 RNA PCR Negative
== END ==
PROVIDERS: PCP Family Medicine
DX: Z20.822 Contact with and (suspected) exposure to COVID-19 (principal)
CPT/HCPCS: C9803; U0003; U0005

== ENCOUNTER 2025-03-08 12:08 | Emergency (ER) | payer OTHER, SELFPAY ==
--- NOTE | 2025-03-08 12:32 | ED_ITS ---
HPI - URI/Sore Throat General Chief Complaint: Upper Respiratory Infection Stated Complaint: Acute sinus infection; Voice change; Fever & Chill Time Seen by Provider: 03/08/25 12:32 Source: patient Mode of arrival: ambulatory Limitations: no limitations History of Present Illness HPI Narrative: Jenna is a 64-year-old female patient presenting to the clinic today with complaints of runny nose, cough, sinus congestion, voice change, fever, and chills. She reports symptoms have been going on for 4 days. Has felt feverish but does not know what her temperature actually was. States she has a history of chronic sinusitis. MD elicited complaint: sore throat and nasal congestion Related Data Home Medications Medication Instructions Recorded Confirmed Last Taken Type clonazepam 2 mg tablet 2 mg PO BID PRN Anxiety 06/27/21 06/27/21 Unknown History Allergies Allergy/AdvReac Type Severity Reaction Status Date / Time codeine Allergy Mild NAUSEA Verified 03/08/25 12:47 diphenhydramine (From Allergy Hallucinati Verified 03/08/25 12:47 Benadryl) ng Review of Systems Review of Systems: Pertinent positives per HPI. Patient denies any rash, headache, visual changes, dizziness, shortness of breath, chest pain, palpitations, nausea, vomiting, diarrhea, constipation, abdominal pain, or any urinary issues. FOR[facility] Past Medical History Medical History (Updated 03/08/25 @ 13:04 by Mak Caba APRN) Chronic sinusitis Depression Anxiety Surgical History Surgical History History of endometrial ablation History of dilation and curettage History of section X4. Family History Family History Other No significant family history Social History Social History Social History: Surrogate decision maker: Richard Faisal, ex-. Code status: Full code. Smoking status: Never smoker Alcohol intake: never Substance use: never Additional living arrangements comments: The patient lives in [place] with her sons. 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 Spiritual care concerns: No Comments At the time of my signature, I reviewed and agree with the nursing past medical, surgical, social, and family history. There is no relevant family history pertinent to the patient complaint. Exam Narrative: General: Well-developed, well nourished, in no apparent distress Head: Normocephalic, atraumatic Eyes: Pupils equally round and reactive to light bilaterally, EOM intact, sclera and conjunctive clear, no discharge, lids normal Ears: TMs intact, congested, red, bulging, ear canals clear, no drainage, grossly hearing normal. Nose: Nares patent, green nasal discharge, moderate inflammation, no sinus tenderness. Mouth: Oral pharynx red without lesions or masses, good dentition, MMM. Postnasal drip Neck: Supple, trachea midline, no enlargement of anterior or posterior cervical nodes, no thyroid masses or goiter palpable. Cardio: Regular rate and rhythm, s1 and s2 normal, no murmur appreciated. Resp: Clear to auscultation bilaterally, no rhonchi, rales, wheezing or rubs Course Course Emergency Course: Portions of this record may have been created with voice recognition software. Level of Care: Express Care Visit Vital Signs Vital signs: Vital Signs Temperature 36.7 C 03/08/25 12:35 Pulse Rate 76 03/08/25 12:35 Respiratory Rate 18 03/08/25 12:35 Blood Pressure 125/87 03/08/25 12:35 Pulse Oximetry 99 03/08/25 12:35 Oxygen Delivery Room Air 03/08/25 12:35 Temperature 36.7 C 03/08/25 12:35 Pulse Rate 76 03/08/25 12:35 Respiratory Rate 18 03/08/25 12:35 Blood Pressure 125/87 03/08/25 12:35 Pulse Oximetry 99 03/08/25 12:35 Oxygen Delivery Room Air 03/08/25 12:35 Vital signs reviewed MDM - URI/Sore Throat MDM Narrative Medical decision making narrative: At the time of visit patient is resting comfortably on the exam table. Patient appears to be nontoxic. Labs: COVID, influenza, and strep test were all negative in the clinic today. We will send strep for culture. Plan: I will place the patient on Augmentin and prednisone to cover for sinusitis/ear infection. Supportive measures were discussed with the patient and they voiced understanding discharge instructions and agrees to treatment plan. Return precautions reviewed Differential Diagnosis Differential diagnosis: Likely upper respiratory infection, otitis media, sinusitis, viral infection, bronchitis, influenza, pharyngitis and other (COVID) Lab Data Labs: Lab Results 03/08/25 03/08/25 03/08/25 Range/Units 12:55 13:14 13:15 POC Influenza A Ag Negative (Negative) POC Influenza B Ag Negative (Negative) POC SARS CoV-2 Ag Negative (Negative) POC Grp A Strep Screen Negative (Negative) Discharge Plan Discharge Clinical Impression: Bilateral acute otitis media, Acute upper respiratory infection Pharyngitis Qualifiers: Pharyngitis/tonsillitis etiology: unspecified etiology Qualified Code(s): J02.9 - Acute pharyngitis, unspecified Patient Disposition: Home Condition: Stable Instructions: Antibiotic Form, Pharyngitis (ED), Ear Infection (ED), Cold Symptoms (ED) Additional Instructions: Take prescription medications only as prescribed-Augmentin and prednisone Increase fluids and stay well hydrated Tylenol/motrin for pain/fever Flonase and OTC antihistamines as directed Vicks vapor rub to open sinuses Sinus rinses for congestion Cepacol spray, cough drops, throat lozenges, warm tea with honey/lemon, gargle salt water to soothe throat BRAT diet for diarrhea Clear liquids x 24 hours then advance as tolerated for nausea/vomiting Go to the ED if you develop a worsening in your condition- high fever not controlled by Tylenol or Motrin, dehydration, weakness, lethargy, shortness of breath, or chest pain. Follow up with your PCP in 3-5 days if symptoms persist. Patient Language: Bangladeshi Prescriptions: New amoxicillin-pot clavulanate 875-125 mg tablet 1 tablet PO Q12H 10 Days Qty: 20 0RF prednisone 20 mg tablet 40 mg PO DAILY 5 Days Qty: 10 0RF No Action clonazepam 2 mg tablet 2 mg PO BID PRN (Reason: Anxiety) albuterol sulfate [Proventil HFA] 90 mcg/actuation Hfa Aerosol Inhaler 2 puff inhalation QIDRT PRN (Reason: shortness of breath or wheezing) Qty: 6.7 0RF amlodipine [Norvasc] 5 mg Tablet 10 mg PO QAM Qty: 30 0RF benzonatate 100 mg Capsule 200 mg PO TID PRN (Reason: Cough) Qty: 20 0RF Follow-up/Referrals: UNKNOWN,DOCTOR [Primary Care Provider] - Time of Disposition: 13:05 Quality NIHSS Nursing Documentation ED NIHSS nursing documentation: reviewed/agree
[2025-03-08 12:35] VITALS: BP 125/87; PULSE 76; RESP 18; TEMP 36.7; O2SAT 99
[2025-03-08 12:57] LABS: EDSTREPNEGPOS1 Negative (Negative)
[2025-03-08 13:16] LABS: EDINFLUASCREEN Negative (Negative); EDINFLUBSCREEN Negative (Negative)
[2025-03-08 13:16] LABS: EDCOVIDSCREEN Negative (Negative)
== END 2025-03-08 13:19 | disposition home or self-care (01) ==
PROVIDERS: Emergency Provider Nurse Practitioner Family
DX: H66.93 Otitis media, unspecified, bilateral (principal); J06.9 Acute upper respiratory infection, unspecified; J02.9 Acute pharyngitis, unspecified; Z20.822 Contact with and (suspected) exposure to COVID-19; F41.9 Anxiety disorder, unspecified
CPT/HCPCS: 87081; 87426; 87804; 87880; 99213; G0463

== ENCOUNTER 2025-05-04 16:25 | Outpatient (CLI) | payer OTHER, SELFPAY ==
--- NOTE | ~2025-05-04 | XR_ITS ---
Lumbosacral Spine: AP and lateral views Clinical History: Pain Findings: The normal lordotic curve is maintained. No fracture seen. There is 10 mm anterolisthesis o f L4 over L5. There is advanced degenerative disc narrowing at L5-S1. There is moderate to advanced d egenerative disc narrowing at L2-L3, L3-L4, L4-L5. There is advanced facet arthropathy throughout the lumbar spine.. The sacroiliac joints are normally outlined. Impression: Moderate to advanced degenerative spondylosis, with 10 mm anterolisthesis of L4 over L5. Reviewed, dictated and finalized at location M. Impression: Moderate to advanced degenerative spondylosis, with 10 mm anterolisthesis of L4 over L5.
--- OUTSIDE RECORDS SUMMARY | 2025-05-04 16:29 | XMS_ITS | Data Portability ---
Author Organization [place] - [facility] [email or web address], Main Office Address [address] [place] [address] Assessment No assessment recorded. Plan of Treatment Reminders Order Date Submit Date Provider Last Modified By Organization Details Last Modified Time Details Appointments None recorded. Lab vitamin D, 25-hydroxy, total, serum [address] [facility], [address] [place], [address], 17:41:48 lipid panel, serum [address] [facility], [address] [place], [address], 17:41:47 HbA1c (hemoglobin A1c), blood [address] [facility], [address] [place], [address], 17:41:47 TSH + free T4, serum 20[address] [facility] [facility], [address] [place], [address], 17:41:47 CMP, serum or plasma [address] [facility], [address] [place], [address], 5 17:41:48 CBC w/ auto diff 2024 025 [email or web address] [facility], [address] [place], [address], 5 17:41:48 CBC w/ auto diff 2023 024 [email or web address] Not available 4 08:48:44 iron + total iron-bindin g capacity (TIBC), serum 2023 024 [email or web address] Not available 4 08:48:44 ferritin, serum or plasma 2023 024 [email or web address] Not available 4 08:48:44 lipid panel, serum 2023 024 [email or web address] Not available 4 08:48:44 hepatic function panel, serum 2023 024 [email or web address] Not available 4 08:48:45 BMP, serum or plasma 2023 024 [email or web address] Not available 4 08:48:45 HbA1c (hemoglobin A1c), blood 2023 024 [email or web address] Not available 4 08:48:44 vitamin B12, serum 2023 024 [email or web address] Not available 4 08:48:44 folate, serum 2023 024 [email or web address] Not available 4 08:48:44 TSH, serum or plasma 2023 024 [email or web address] Not available 4 08:48:45 vitamin D, 25-hydroxy, total, serum 2023 024 [email or web address] Not available 4 08:48:43 Referral None recorded. Procedures colonoscopy screening (PROC) - Please call patient to schedule an appointment . Thank you. 2024 025 [email or web address] Bob Rodrigues MD, [address] [place], [address], 16:40:13 colonoscopy screening (PROC) - *Please call pt to schedule on main campus* 2023 024 [email or web address] 256 Kaci Skaggs MD, [address] [place] [address], [address], 4 09:22:28 Surgeries None recorded. Imaging MAMMO, screening, digital, bilateral - Please call patient to schedule. 20[email or web address] [place] [address] - [facility], [address], [address], [place], [address], 11:54:08 XR, lumbosacral spine, 2 or 3 view 2024 [email or web address] [place] [address] Center, [address], [place], [address], 11:54:08 CT, sinuses, w/o contrast - [facility] PROTOCOL. PLEASE GIVE PATIENT A COPY OF DISK. Schedule in March please. 2024 025 [facility], [address], [place], [address], 04:27:50 Medication Orders cyclobenzap rine 5 mg tablet 2024 025 [facility]/Pharmacy #[id number], [address] [place], [address], 16:30:26 cefdinir 300 mg capsule 2024 025 [facility]/Pharmacy #[id number], [address] [place], [address], 14:21:04 Medrol (Shen) 4 mg tablets in a dose pack 2024 025 [email or web address] [facility]/Pharmacy #[id number], [address] [place], [address], 15:28:55 Patient TargetsNo targets recorded. Patient Instructions Encounter Date Encounter Id Patient Instructions Last Modified By Organization Details Last Modified Time 05/02/2025 [id number] Discussed medication compliance and routine follow up. Discussed healthy diet and routine exercise. Reviewed vaccine records and made recommendations as needed. Encouraged annual eye and dental exams, as well as twice yearly dental cleanings. Will check screening labs as listed below. [email or web address] Not available 05/02/2025 15:32:07 Discussed pain management and proper stretching for back pain. Discussed overall care and health maintenance. Not available 05/02/2025 16:30:00 Reason for Referral None Reported. Results Created Date Observation Date Name Description Value Unit Range Abnormal Flag Note LastModifiedBy Organization Detail LastModifiedTime 09/15/2009/15/2023 rapid flu (A+B) Flu A negati ve Not Available [address], [place], [address], 09/15/2023 11:28:10 09/15/20 23 09/15/2023 rapid flu (A+B) Flu B negati ve Not Available [address], [place], [address], 09/15/2023 11:28:10 04/07/20 24 04/08/2024 LIPID PANEL , STAND LILLIE cholesterol, total 214 mg/dL <200 high Not Available [facility] [facility] [address] [place] [address], [address], 04/08/2024 05:57:40 04/07/20 24 04/08/2024 LIPID PANEL , STAND LILLIE HDL cholesterol 64 mg/dL > or = 50 normal Not Available [employer] [facility] [address] [place] [address], [address], 04/08/2024 05:57:40 04/07/20 24 04/08/2024 LIPID PANEL , STAND LILLIE triglyceride s 129 mg/dL <150 normal Not Available [facility] [address] [place], [address], 04/08/2024 05:57:40 04/07/20 24 04/08/2024 LIPID PANEL , STAND LILLIE LDL-choleste rol 126 mg/dL _(jossue c) high Refer ence range : <100 [place] able range <100 mg/dL for prima ry preve ntion ; <70 mg/dL for patie nts with CHD or diabe tic patie nts with > or = 2 CHD risk facto rs. LDL-C is now calcu lated using the Vanessa n-Hop kins calcu gena n, which is a valid ated novel metho d provi america alin r accur acy than the Fried malvin equat ion in the estim ation of LDL-C . Vanessa whyte SS et al. TOMMY. 2013; 310(1 9): 2061- 2068 (http ://ed ucati on.Qu [employer]. com/f aq/FA Q164) Not Available [facility] [address] [place] [address], [place], [address], 04/08/2024 05:57:40 04/07/20 24 04/08/2024 LIPID PANEL , STAND LILLIE chol/HDLC ratio 3.3 (calc ) <5.0 normal Not Available [facility] [address] [place], [address], 04/08/2024 05:57:40 04/07/20 24 04/08/2024 LIPID PANEL , STAND LILLIE non HDL cholesterol 150 mg/dL _(jossue c) <130 high For patie nts with diabe ricardo plus 1 major ASCVD risk facto r, treat ing to a non-H DL-C goal of <100 mg/dL (LDL- C of <70 mg/dL ) is consi dered a thera peuti c optio n. Not Available [address], [address], 04/08/2024 05:57:40 04/07/20 24 04/08/2024 IRON AND TOTAL IRON FREDY NG CAPAC ITY iron, total 69 mcg/d L 45-160 normal Not Available [address], [address], 04/08/2024 05:57:40 04/07/20 24 04/08/2024 IRON AND TOTAL IRON FREDY NG CAPAC ITY iron binding capacity 254 mcg/d L_(ca lc) 250-45 0 normal Not Available [address], [address], 04/08/2024 05:57:40 04/07/20 24 04/08/2024 IRON AND TOTAL IRON FREDY NG CAPAC ITY % saturation 27 %_(ca lc) 16-45 normal Not Available [address], [address], 04/08/2024 05:57:40 04/07/20 24 04/08/2024 BASIC METAB OLIC PANEL glucose 110 mg/dL 65-99 high Fasti ng refer ence inter almita For someo ne witho ut known diabe ricardo, a gluco se value betwe en 100 and 125 mg/dL is consi stent with predi abete s and shoul d be confi rmed with a follo w-up test. Not Available [address], [address], 04/08/2024 05:57:41 04/07/20 24 04/08/2024 BASIC METAB OLIC PANEL urea nitrogen (BUN) 17 mg/dL 7-25 normal Not Available [address], [address], 04/08/2024 05:57:41 04/07/20 24 04/08/2024 BASIC METAB OLIC PANEL creatinine 0.76 mg/dL 0.50-1 .05 normal Not Available [address] [address] [place], [address], 04/08/2024 05:57:41 04/07/20 24 04/08/2024 BASIC METAB OLIC PANEL eGFR 87 mL/mi n/1.7 3m2 > or = 60 normal Not Available [address] [place], [address], 04/08/2024 05:57:41 04/07/20 24 04/08/2024 BASIC METAB OLIC PANEL BUN/creatini ne ratio SEE NOTE: (calc ) 6-22 Not Repor linn: BUN and Creat inine are withi n refer ence range . Not Available [address], [address], 04/08/2024 05:57:41 04/07/20 24 04/08/2024 BASIC METAB OLIC PANEL sodium 139 mmol/ L 135-14 6 normal Not Available [address] [address] [place], [address], 04/08/2024 05:57:41 04/07/20 24 04/08/2024 BASIC METAB OLIC PANEL potassium 4.0 mmol/ L 3.5-5. 3 normal Not Available [address], [address], 04/08/2024 05:57:41 04/07/20 24 04/08/2024 BASIC METAB OLIC PANEL chloride 103 mmol/ L 98-110 normal Not Available [address], [address], 04/08/2024 05:57:41 04/07/20 24 04/08/2024 BASIC METAB OLIC PANEL carbon dioxide 28 mmol/ L 20-32 normal Not Available [address] [address] [place], [address], 04/08/2024 05:57:41 04/07/20 24 04/08/2024 BASIC METAB OLIC PANEL calcium 9.3 mg/dL 8.6-10 .4 normal Not Available [address], [address], 04/08/2024 05:57:41 04/07/20 24 04/08/2024 HEPAT IC FUNCT ION PANEL protein, total 7.0 g/dL 6.1-8. 1 normal Not Available [address], [address], 04/08/2024 05:57:41 04/07/20 24 04/08/2024 HEPAT IC FUNCT ION PANEL albumin 4.3 g/dL 3.6-5. 1 normal Not Available [address], [address], 04/08/2024 05:57:41 04/07/20 24 04/08/2024 HEPAT IC FUNCT ION PANEL globulin 2.7 g/dL_ (calc ) 1.9-3. 7 normal Not Available [address], [address], 04/08/2024 05:57:41 04/07/20 24 04/08/2024 HEPAT IC FUNCT ION PANEL albumin/glob ulin ratio 1.6 (calc ) 1.0-2. 5 normal Not Available [address], [address], 04/08/2024 05:57:41 04/07/20 24 04/08/2024 HEPAT IC FUNCT ION PANEL bilirubin, total 0.5 mg/dL 0.2-1. 2 normal Not Available [address], [address], 04/08/2024 05:57:41 04/07/20 24 04/08/2024 HEPAT IC FUNCT ION PANEL bilirubin, direct 0.1 mg/dL < or = 0.2 normal Not Available [address] [address] [place], [address], 04/08/2024 05:57:41 04/07/20 24 04/08/2024 HEPAT IC FUNCT ION PANEL bilirubin, indirect 0.4 mg/dL _(jossue c) 0.2-1. 2 normal Not Available [address], [address], 04/08/2024 05:57:41 04/07/20 24 04/08/2024 HEPAT IC FUNCT ION PANEL alkaline phosphatase 74 U/L 37-153 normal Not Available [facility] [employer] [address], [address], 04/08/2024 05:57:41 04/07/20 24 04/08/2024 HEPAT IC FUNCT ION PANEL AST 21 U/L 10-35 normal Not Available [address], [address], 04/08/2024 05:57:41 04/07/20 24 04/08/2024 HEPAT IC FUNCT ION PANEL ALT 18 U/L 6-29 normal Not Available [employer] [address], [address], 04/08/2024 05:57:41 04/07/20 24 04/08/2024 CBC (INCL UDES DIFF/ PLT) white blood cell count 5.7 thous and/u L 3.8-10 .8 normal Not Available [address], [address], 04/08/2024 05:57:41 04/07/20 24 04/08/2024 CBC (INCL UDES DIFF/ PLT) red blood cell count 4.29 daniel on/uL 3.80-5 .10 normal Not Available [employer] [facility] [employer] [address], [address], 04/08/2024 05:57:41 04/07/20 24 04/08/2024 CBC (INCL UDES DIFF/ PLT) hemoglobin 12.8 g/dL 11.7-1 5.5 normal Not Available [address], [address], 04/08/2024 05:57:41 04/07/20 24 04/08/2024 CBC (INCL UDES DIFF/ PLT) hematocrit 40.4 % 35.0-4 5.0 normal Not Available [address], [address], 04/08/2024 05:57:41 04/07/20 24 04/08/2024 CBC (INCL UDES DIFF/ PLT) MCV 94.2 fL 80.0-1 00.0 normal Not Available [address], [address], 04/08/2024 05:57:41 04/07/20 24 04/08/2024 CBC (INCL UDES DIFF/ PLT) MCH 29.8 pg 27.0-3 3.0 normal Not Available [address], [address], 04/08/2024 05:57:41 04/07/20 24 04/08/2024 CBC (INCL UDES DIFF/ PLT) MCHC 31.7 g/dL 32.0-3 6.0 low Not Available [address], [address], 04/08/2024 05:57:41 04/07/20 24 04/08/2024 CBC (INCL UDES DIFF/ PLT) RDW 12.5 % 11.0-1 5.0 normal Not Available [address], [address], 04/08/2024 05:57:41 04/07/20 24 04/08/2024 CBC (INCL UDES DIFF/ PLT) platelet count 254 thous and/u L 140-40 0 normal Not Available [address], [address], 04/08/2024 05:57:41 04/07/20 24 04/08/2024 CBC (INCL UDES DIFF/ PLT) MPV 10.2 fL 7.5-12 .5 normal Not Available [address], [address], 04/08/2024 05:57:41 04/07/20 24 04/08/2024 CBC (INCL UDES DIFF/ PLT) absolute neutrophils 3654 cells /uL 1500-7 800 normal Not Available [address], [address], 04/08/2024 05:57:41 04/07/20 24 04/08/2024 CBC (INCL UDES DIFF/ PLT) absolute lymphocytes 1300 cells /uL 850-39 00 normal Not Available [address], [address], 04/08/2024 05:57:41 04/07/20 24 04/08/2024 CBC (INCL UDES DIFF/ PLT) absolute monocytes 536 cells /uL 200-95 0 normal Not Available [address], [address], 04/08/2024 05:57:41 04/07/20 24 04/08/2024 CBC (INCL UDES DIFF/ PLT) absolute eosinophils 171 cells /uL 15-500 normal Not Available [address], [address], 04/08/2024 05:57:41 04/07/20 24 04/08/2024 CBC (INCL UDES DIFF/ PLT) absolute basophils 40 cells /uL 0-200 normal Not Available [address], [address], 04/08/2024 05:57:41 04/07/20 24 04/08/2024 CBC (INCL UDES DIFF/ PLT) neutrophils 64.1 % normal Not Available [facility] [address], [address], 04/08/2024 05:57:41 04/07/20 24 04/08/2024 CBC (INCL UDES DIFF/ PLT) lymphocytes 22.8 % normal Not Available [facility] [address], [address], 04/08/2024 05:57:41 04/07/20 24 04/08/2024 CBC (INCL UDES DIFF/ PLT) monocytes 9.4 % normal Not Available [facility] [address], [address], 04/08/2024 05:57:41 04/07/20 24 04/08/2024 CBC (INCL UDES DIFF/ PLT) eosinophils 3.0 % normal Not Available [address], [address], 04/08/2024 05:57:41 04/07/20 24 04/08/2024 CBC (INCL UDES DIFF/ PLT) basophils 0.7 % normal Not Available [address], [address], 04/08/2024 05:57:41 04/07/20 24 04/08/2024 CHRISTINA TIN ferritin 72 NG/mL 16-288 normal Not Available [address], [address], 04/08/2024 05:57:42 04/07/20 24 04/08/2024 VITAM IN B12/F OLATE , SERUM PANEL vitamin B12 384 pg/mL 200-11 00 normal Pleas e Note: Altho ugh the refer ence range for vitam in B12 is 200-1 100 pg/mL , it has been repor linn that betwe en 5 and 10% of patie nts with value s betwe en 200 and 400 pg/mL may exper ience neuro psych iatri c and hemat ologi c abnor malit ies due to occul t B12 defic iency ; less than 1% of patie nts with value s above 400 pg/mL will have sympt oms. Not Available [facility] [address] [address] [place], [address], 04/08/2024 05:57:42 04/07/20 24 04/08/2024 VITAM IN B12/F OLATE , SERUM PANEL folate, serum 22.7 NG/mL normal Refer ence Range Low: <3.4 Borde rline : 3.4-5 .4 Samira l: >5.4 Not Available [facility] [address] [address] [place], [address], 04/08/2024 05:57:42 04/07/20 24 04/08/2024 TSH TSH 2.20 mIU/L 0.40-4 .50 normal Not Available [facility] [address] [place], [address], 04/08/2024 05:57:42 04/07/20 24 04/08/2024 VITAM IN D,25- OH,TO ELVIRA,I A vitamin D,25-oh,tota l,ia 24 NG/mL 30-100 low Vitam in D Statu s 25-OH Vitam in D: Defic iency : <20 ng/mL Insuf ficie ncy: 20 - 29 ng/mL Optim al: > or = 30 ng/mL For 25-OH Vitam in D testi ng on patie nts on D2-[place] pplem entat ion and patie nts for whom quant itati on of D2 and D3 fract ions is requi red, the [facility] Ass[facility] eD(TM ) 25-OH VIT D, (D2,D 3), LC/MS /MS is recom brigid d: order code 15429 (pauline ents >2yrs ). See Note 1 Note 1 For addit ional infor roland bain e refer to http: //cody Lagunas gnost ics.c om/fa q/FAQ 199 (This link is being provi ded for infor matio nal/ educa osmin l purpo ses only. ) Not Available [employer] [address] [facility] [place], [address], 04/08/2024 05:57:43 04/07/20 24 04/08/2024 HEMOG LOBIN A1C hemoglobin A1C 5.6 %_of_ total _HGB <5.7 normal For the purpo se of screbernie isaacsg for the prese nce of diabe ricardo: <5.7% Consi stent with the absen ce of diabe ricardo 5.7-6 .4% Consi stent with incre ased risk for diabe ricardo (pred iabet es) > or =6.5% Consi stent with diabe ricardo This assay resul t is consi stent with a decre ased risk of diabe ricardo. Curre ntly, no conse nsus exist s jennifer cross use of hemog lobin A1c for diagn osis of diabe ricardo in child [place]. Accor ding to Ameri can Diabe ricardo Assoc iatio n (ADA) guide lines , hemog lobin A1c <7.0% repre sents optim al contr ol in non-p regna nt diabe tic patie nts. Diffe rent metri cs may apply to speci fic patie nt popul ation s. Stand ards of Medic al Care in Diabe ricardo(A DA). This test was perfo rmed on the Eve noelle c503 platf orm. Effec tive , kermit gibbs in test platf orms from the [facility] Archi tect to the Eve noelle c503 may have shift ed HbA1c resul ts josefina red to histo rical resul ts. Based on labor atory valid ation testi ng condu cted at [facility] , the Eve platf orm relat marcos to the Abbot t platf orm had an avera ge incre ase in HbA1c value of < or = 0.3%. This diffe rence is withi n accep linn varia bilit y estab lishe d by the Natio nal Glyco hemog lobin Stand ardiz ation Progr am. Note that not all indiv idual s will have had a shift in their resul ts and direc t josefina rison s betwe en histo rical and curre nt resul ts for testi ng condu cted on diffe rent platf orms is not recom brigid randhawa Not Available [facility] [address], [place], [address], 04/08/2024 05:57:43 01/09/20 23 01/06/2023 scree gagandeep breas t uriel, bilat [facility] [place] [address], [place] [address] [phone] Patitish t Name: JENNA MARI Access ion #: [id number] Sex: F : 1959 7 Locati on: RAD Attend ing Physic melonie: CHIKA DOOLEY Orderi ng Physic melonie: CHIKA DOOLEY Exam Date: 023 7:37 AM Exam Name: MG KU BREAST URIEL BILAT Admitt ing Diagno sis(es ): MAMMOG KRYSTA REPORT - FINAL EXAM: SCRN BREAST URIEL BILAT HISTOR Y: SCREEN ING MAMMOG MARGO COMPAR TIARRA: 2012 TECHNI QUE: Bilate ral CC and MLO views of the breast s were perfor med. Digita l Mammog krysta images were obtain ed. CAD (compu ter assist ed detect ion) was utiliz ed. 3D Digita l breast tomosy nthesi s was perfor med and used in the interp retati on of images . FINDIN GS: The breast s are hetero geneou sly dense, which may obscur e small masses . Right breast : There is an asymme try within the midpor tion and deep latera l Page 1 of 2 [facility] [place] Patitish t Name: JENNA MARI Access ion #: [id number] Sex: F : 1959 7 Exam Date: 023 7:37 AM Exam Name: MG SCRN BREAST URIEL BILAT Admitt ing Diagno sis(es ): aspect of the right breast . Left breast : No defini te asymme tries or suspic ious calcif icatio ns on the left IMPRES JACINTA: BIRADS 0: Assess ment incomp lete. Need additi onal imagin g evalua tion. Recomm end ultras ound of the right breast asymme tries. Create d and electr onical ly signed by: Chris amador MD Signed Date: 7:07 AM (CT) Dictat ed by: Chris amador MD DD: 7:07 AM (CT) DT: 7:07 AM (CT) Page 2 of [address] (Imaging) [address] [place] [address], [address], 01/20/2023 13:43:44 02/01/20 23 01/29/2023 US, miguel angel oneal, limit ed [facility] [address] [place] [address] Patien t Name: JENNA MARI Access ion #: [id number] Sex: F : 1959 9 Locati on: RAD Attend ing Physic melonie: CHIKA DOOLEY Orderi Physic melonie: CHIKA DOOLEY Exam Date: 023 4:03 PM Exam Name: US BREAST LIMITE D RT Admitt ing Diagno sis(es ): RADIOL OGY REPORT - FINAL EXAM: US BREAST LIMITE D RT HISTOR Y: right abnorm al mamm COMPAR TIARRA: None. TECHNI QUE: Focuse d ultras ound evalua tion of the right breast was perfor med. FINDIN GS: No solid mass or cystic lesion s are identi fied about the right breast . IMPRES JACINTA: BIRADS 3: Assess ment comple te. Probab ly benign findin gs. Three month mammog margo right breast follow -up recomm ended. Page 1 of 2 [facility] Patitish t Name: JENNA MARI Access ion #: [id number] Sex: F : 1959 9 Exam Date: 4:03 PM Exam Name: US BREAST LIMITE D RT Admitt ing Diagno sis(es ): Create d and electr onical ly signed by: Chris amador MD Signed Date: 9:05 AM (CT) Dictat ed by: Chris amadro MD DD: 9:05 AM (CT) DT: 9:05 AM (CT) Page 2 of [address] (Imaging) [address] [place], [address], 02/03/2023 18:15:58 02/01/20 23 01/29/2023 US, miguel angel oneal, unila teral No observ ation record ed. [address] [place], [address], 02/03/2023 18:15:58 05/06/20 23 05/06/2023 US, miguel angel oneal, limit ed [facility] [address] [place] [address] [phone] Patien t Name: JENNA MARI Access ion #: [id number] Sex: F : 1959 3 Dictat ed By: Jade Arnold ell Attend ing Physic melonie: CHIKA DOOLEY [facility] Physic melonie: MELANIA BRANDON Exam Date: 2022 10:16 AM Exam Name: MG DIAG BREAST URIEL RT Admitt ing Diagno sis(es ): CLINIC AL HISTOR Y: Follow -up to probab ly benign findin gs in the right breast on prior mammog margo and ultras ound. COMPAR TIARRA: Screen ing mammog margo dated 023 and prior ultras ound dated 023. TECHNI QUE: Digita l right breast tomosy nthesi s was perfor med. Synthe sized CC and MLO images were create d from the tomosy nthesi s images . CAD was utiliz ed. Spot compre ssion digita l CC and MLO views of the right breast were also obtain ed. Limite d diagno stic right breast ultras ound was also perfor med. FINDIN GS: The right breast is hetero geneou sly dense, which may obscur e small masses (categ ory C). The focal asymme try in the right upper outer breast appear s to at least partia lly persis t on spot compre ssion views. No mass or suspic ious findin g is seen on ultras ound in the right upper outer breast . IMPRES JACINTA: Probab ly benign findin g in the right breast . RECOMM ENDATI ONS: Six-mo nth follow -up diagno stic mammog margo and ultras ound recomm ended. The patien t will be notifi ed of the mammog krysta result s per hospit al protoc ol. BI-RAD S CATEGO RY: 3: Probab ly Benign . Electr onical ly Signed by: Jade oconnor at 2022 15:12: 33 PM Page 1 [email or web address] [facility] (Imaging) [address] [place], [address], 05/08/2023 17:03:03 05/06/20 23 05/06/2023 US, miguel angel t, limit ed [facility] [address] [place] [address] Patien t Name: JENNA MARI Access ion #: [id number] Sex: F : 1959 3 Dictat ed By: Jade oconnor Attend ing Physic melonie: CHIKA DOOLEY Physic melonie: MELANIA BRANDON Exam Date: 2022 10:55 AM Exam Name: US BREAST LIMITE D RT Admitt ing Diagno sis(es ): CLINIC AL HISTOR Y: Follow -up to probab ly benign findin gs in the right breast on prior mammog margo and ultras ound. COMPAR TIARRA: Screen ing mammog margo dated 023 and prior ultras ound dated 023. TECHNI QUE: Digita l right breast tomosy nthesi s was perfor med. Synthe sized CC and MLO images were create d from the tomosy nthesi s images . CAD was utiliz ed. Spot compre ssion digita l CC and MLO views of the right breast were also obtain ed. Limite d diagno stic right breast ultras ound was also perfor med. FINDIN GS: The right breast is hetero geneou sly dense, which may obscur e small masses (categ ory C). The focal asymme try in the right upper outer breast appear s to at least partia lly persis t on spot compre ssion views. No mass or suspic ious findin g is seen on ultras ound in the right upper outer breast . IMPRES JACINTA: Probab ly benign findin g in the right breast . RECOMM ENDATI ONS: Six-mo nth follow -up diagno stic mammog margo and ultras ound recomm ended. The patien t will be notifi ed of the mammog krysta result s per hospit al protoc ol. BI-RAD S CATEGO RY: 3: Probab ly Benign . Electr onical ly Signed by: Jade oconnor at 2022 15:12: 33 PM Page 1 [email or web address] [facility] (Imaging) [address] [place], [address], 05/08/2023 17:03:04 05/06/20 23 05/06/2023 MAMMO , diagn ostic , digit al, unila teral No observ ation record ed. [id number] [facility] [address] [place], [address], 05/08/2023 17:03:04 05/08/20 23 05/06/2023 , miguel angel t, limit ed [facility] [place] [address] [place], [place] [id number] [phone] Patien t Name: JENNA MARI Access ion #: [id number] Sex: F : 1959 3 Dictat ed By: Jade oconnor Attend ing Physic melonie: CHIKA DOOLEY Orderi Physic melonie: CHIKA DOOLEY Exam Date: 2022 10:16 AM Exam Name: MG DIAG BREAST URIEL RT Admitt ing Diagno sis(es ): CLINIC AL HISTOR Y: Follow -up to probab ly benign findin gs in the right breast on prior mammog margo and ultras ound. COMPAR TIARRA: Screen ing mammog margo dated 023 and prior ultras ound dated 023. TECHNI QUE: Digita l right breast tomosy nthesi s was perfor med. Synthe sized CC and MLO images were create d from the tomosy nthesi s images . CAD was utiliz ed. Spot compre ssion digita l CC and MLO views of the right breast were also obtain ed. Limite d diagno stic right breast ultras ound was also perfor med. FINDIN GS: The right breast is hetero geneou sly dense, which may obscur e small masses (categ ory C). The focal asymme try in the right upper outer breast appear s to at least partia lly persis t on spot compre ssion views. No mass or suspic ious findin g is seen on ultras ound in the right upper outer breast . IMPRES JACINTA: Probab ly benign findin g in the right breast . RECOMM ENDATI ONS: Six-mo nth follow -up diagno stic mammog margo and ultras ound recomm ended. The patien t will be notifi ed of the mammog krysta result s per hospit al protoc ol. BI-RAD S CATEGO RY: 3: Probab ly Benign . Electr onical ly Signed by: Jade oconnor at 2022 15:12: 33 PM Page 1 [email or web address] [facility] (Imaging) [address] [place], [address], 05/08/2023 17:03:05 05/08/20 23 05/06/2023 US, breas t, limit ed [facility] [address] [place] [address] [phone] Patien t Name: JENNA MARI ion #: [id number] Sex: F : 1959 3 Dictat ed By: Jade oconnor Attend ing Physic melonie: CHIKA DOOLEY Orderi ng Physic melonie: CHIKA DOOLEY Exam Date: 2022 10:55 AM Exam Name: US BREAST LIMITE D RT Admitt ing Diagno sis(es ): CLINIC AL HISTOR Y: Follow -up to probab ly benign findin gs in the right breast on prior mammog margo and ultras ound. COMPAR TIARRA: Screen ing mammog margo dated 023 and prior ultras ound dated 023. TECHNI QUE: Digita l right breast tomosy nthesi s was perfor med. Synthe sized CC and MLO images were create d from the tomosy nthesi s images . CAD was utiliz ed. Spot compre ssion digita l CC and MLO views of the right breast were also obtain ed. Limite d diagno stic right breast ultras ound was also perfor med. FINDIN GS: The right breast is hetero geneou sly dense, which may obscur e small masses (categ ory C). The focal asymme try in the right upper outer breast appear s to at least partia lly persis t on spot compre ssion views. No mass or suspic ious findin g is seen on ultras ound in the right upper outer breast . IMPRES JACINTA: Probab ly benign findin g in the right breast . RECOMM ENDATI ONS: Six-mo nth follow -up diagno stic mammog margo and ultras ound recomm ended. The patien t will be notifi ed of the mammog krysta result s per hospit al protoc ol. BI-RAD S CATEGO RY: 3: Probab ly Benign . Electr onical ly Signed by: Jade oconnor at 2022 15:12: 33 PM Page 1 [email or web address] [facility] (Imaging) [address] [facility], [place], [address], 05/08/2023 17:03:05 05/08/20 23 05/06/2023 US, breas t, limit ed [facility] [address] [facility] [address], [place] [address] Patien t Name: JENNA MARI Access ion #: [id number] Sex: F : 1959 3 Dictat ed By: Jade oconnor Attend ing Physic melonie: CHIKA DOOLEY Orderi ng Physic melonie: CHIKA DOOLEY Exam Date: 2022 10:55 AM Exam Name: US BREAST LIMITE D RT Admitt ing Diagno sis(es ): CLINIC AL HISTOR Y: Follow -up to probab ly benign findin gs in the right breast on prior mammog margo and ultras ound. COMPAR TIARRA: Screen ing mammog margo dated 023 and prior ultras ound dated 023. TECHNI QUE: Digita l right breast tomosy nthesi s was perfor med. Synthe sized CC and MLO images were create d from the tomosy nthesi s images . CAD was utiliz ed. Spot compre ssion digita l CC and MLO views of the right breast were also obtain ed. Limite d diagno stic right breast ultras ound was also perfor med. FINDIN GS: The right breast is hetero geneou sly dense, which may obscur e small masses (categ ory C). The focal asymme try in the right upper outer breast appear s to at least partia lly persis t on spot compre ssion views. No mass or suspic ious findin g is seen on ultras ound in the right upper outer breast . IMPRES JACINTA: Probab ly benign findin g in the right breast . RECOMM ENDATI ONS: Six-mo nth follow -up diagno stic mammog margo and ultras ound recomm ended. The patien t will be notifi ed of the mammog krysta result s per hospit al protoc ol. BI-RAD S CATEGO RY: 3: Probab ly Benign . Electr onical ly Signed by: Jade oconnor at 2022 11:20: 29 AM Page [address] (Imaging) [address] [place], [address], 11/18/2023 07:45:26 05/08/20 23 05/06/2023 MAMMO , diagn ostic , digit al, unila teral No observ ation record ed. [address] [place], [address], 11/18/2023 07:45:27 11/17/19 24 11/17/2023 US, breas t, unila teral [facility] [address] [place] [address] Patien t Name: JENNA MARI Access ion #: [id number] Sex: F : 1959 2 Dictat ed By: Alice Robb Attend ing Physic melonie: CHIKA DOOLEY Orderi Physic melonie: CHIKA DOOLEY Exam Date: 2023 11:36 AM Exam Name: US BREAST LIMITE D RT Admitt ing Diagno sis(es ): REASON FOR EXAM: ABNORM AL MAMMOG MARGO COMPAR TIARRA: 023; TECHNI QUE:ML , spot compre ssion cranio caudal and modifi ed mediol ateral obliqu e views of the RIGHT breast are obtain ed utiliz ing digita l mammog raphic images obtain ed using a mammog raphic system . 3-D imagin g with tomosy nthesi s combin ed with 2-D imagin g were acquir ed. Target ed right breast ultras ound was perfor med FINDIN GS: BREAST COMPOS ITION: The right breast is hetero geneou sly dense, which may obscur e small masses . Spot compre ssion views demons trate a stable mass in the right upper outer breast which persis ts on spot compre ssion views. Target ed ultras ound images of the breast demons trate a stable benign intram ammary lymph node in the right breast at 10:00 locate d 12 cm from the nipple . This likely correl ates with the mammog margo findin g. There is an additi onal benign intram ammary lymph node in the right breast at about 9:00 locate d 11 cm from the nipple . There are benign -appea ring lymph nodes in the axilla . IMPRES JACINTA: Benign -appea ring intram ammary lymph nodes in the right breast . Recomm end annual mammog margo. BIRADS : 2 - Benign Page 1 [facility] [address] [place] [address] [phone] Patien t Name: JENNA MARI [facility] ion #: [id number] Sex: F : 1959 2 Dictat ed By: lAice Robb Attend ing Physic melonie: MELANIA BRANDON [facility]onie: CHIKA DOOLEY Exam Date: 2023 11:36 AM Exam Name: US BREAST LIMITE D RT Admitt ing Diagno sis(es ): Electr onical ly Signed by: Alice Robb at 2023 13:05: 29 PM Page 2 [email or web address] [facility] ([employer]) [address] [place], [address], 11/18/2023 11:42:11 11/17/19 24 11/17/2023 MAMMO , diagn ostic , digit al, unila teral No observ ation record ed. [email or web address] [facility] [address] [place], [address], 11/18/2023 11:42:12 02/10/20 24 02/10/2024 scree gagandeep breas t uriel, bilat [facility] [address] [facility] [facility] [place] [address] Patitish t Name: JENNA MARI ion #: [id number] Sex: F : 1959 5 Dictat ed By: Alice Robb Attend ing Physic melonie: CHIKA DOOLEY Orderi ng Physic melonie: CHIKA DOOLEY Exam Date: 2023 15:39 PM Exam Name: MG SCRN BREAST URIEL BILAT Admitt ing Diagno sis(es ): SCREEN ING MAMMOG MARGO WITH TOMOSY NTHESI S: REASON FOR EXAM: screen ing COMPAR TIARRA: 24 TECHNI QUE: Bilate ral CC and MLO views obtain ed. Images were obtain ed using a Digita l Tomosy nthesi s Unit. Standa rd 2D and 3D Tomosy nthesi s images were review ed. FINDIN GS: BREAST COMPOS ITION: The bilate ral breast s are hetero geneou sly dense, which may obscur e small masses . In the right breast , no asymme trical parenc hymal patter n, elvie ectura l distor tion, pleomo rphic microc alcifi cation s or masses . In the left breast , no asymme trical parenc hymal patter n, elvie ectura l distor tion, pleomo rphic microc alcifi cation s or masses . IMPRES JACINTA: No findin gs of malign maryanne. Recomm end annual mammog margo. BIRADS : 2 - Benign Electr onical ly Signed by: Alice Robb at 2023 16:28: 28 PM Page 1 [email or web address] [facility] ([facility]) [address] [place], [address], 02/23/2024 08:38:43 Result Notes None recorded. Problems Name Problem SNOMED Code Status Onset Date Resolution Date Notes Provider Name and Address Organization Details Recorded Time Mucous membrane dryness 427404559 Active Not Available [employer] 3 08:50:08 Deviated nasal septum 491543592 Active 2021 Not Available [facility] 3 08:50:08 Acute sinusitis 79944368 Active Not Available [facility] 3 08:50:08 Headache 94245801 Active 2021 Not Available [facility] 3 08:50:08 Anemia 598416322 Active 2016 Not Available [facility] 3 08:50:08 Depressive disorder 11964712 Active Not Available [facility] 3 08:50:08 Chronic sinusitis 13029962 Active Not Available [facility] 3 08:50:08 Obesity 142958586 Active Not Available [facility] 3 08:50:08 Allergic rhinitis 12156904 Active Not Available [facility] 3 08:50:08 Diarrhea 97809758 Active Not Available [facility] 3 08:50:09 Posterior rhinorrhea 78561326 Active 2021 Not Available [facility] 3 08:50:09 Attention deficit hyperactivity disorder 906416536 Active 2022 Rhiannon Elias MD [address] [place], [employer], [place], [address] , [employer] [facility] [employer] 3 10:27:53 Mammography abnormal 529105856 Active 2022 Rhiannon Elias MD [address] [place], [employer], [place], [address] , [employer] [facility] [employer] 3 13:44:30 Cough 80335392 Active 2022 Claire Lance LPN null, [employer] [facility] [employer] [facility] 3 11:28:17 Vitamin D deficiency 05526849 Active 2023 Rhiannon Elias MD [address], [address], [place], [address] , [facility] [employer] [facility] [employer] [facility] 4 08:46:18 Vertigo 104005370 Active 2023 Rhiannon Elias MD [address], [address], [address] , [facility] [employer] [facility] [employer] [facility] 4 08:47:26 Hyperglycemia 95994148 Active 2023 Rhiannon Elias MD [address], [address] , [facility] [employer] [facility] [employer] [facility] 4 08:48:07 Adult health examination Active 2023 Rhiannon Elias MD [address] [facility] [address], [address] , [employer] [facility] [employer] [facility] 4 08:48:51 Chronic maxillary sinusitis 09614179 Active 2024 Garrick Zayas MD [address], [address] , [facility] [employer] [facility] [employer] [facility] 5 14:20:20 Acute low back pain 889194704 Active 2024 JON Rivera [address], [address] , [employer] [facility] [employer] [facility] 5 16:01:23 Problem Notes None recorded. Procedures Surgical History Date Name Laterality Status Provider Name and Address Organization Details Recorded Time Cataract Surgery completed Fiorella Weiner [facility] [employer] [facility] 05/02/2025 15:34:00 section completed Fiorella Weiner [facility] [employer] [facility] 05/02/2025 15:34:33 ligation of varicose vein completed Fiorella Weiner [facility] [employer] [facility] 05/02/2025 15:35:04 Imaging Results None recorded. Procedure Notes None recorded. Medical Equipment None Reported. Allergies Allergen ID Allergen Name Allergen Category Reaction Reaction Severity Criticality Documentation Date Start Date Code Code System Note Provider Name and Address Organization Details Recorded Time 30057 codeine medicatio n vomiting Not available Not available 12/18/2022 2670 RxNorm Not Available [employer] 3 08:54:41 Medications Name Sig Start Date Stop Date Status Note LastModified by Organization Details LastModified Time amoxicillin 500 mg capsule 04/17 completed Not Available Not Available Not Available cefuroxime axetil 250 mg tablet 04/17 completed Not Available Not Available Not Available clindamycin HCl 300 mg capsule Take 1 capsule every 6 hours by oral route for 10 days. active Not Available Not Available No t Available azithromyci n 250 mg tablet TAKE 2 TABLETS BY MOUTH TODAY, THEN TAKE 1 TABLET DAILY FOR 4 DAYS DIRECTED 02/22 completed Not Available Not Available Not Available ofloxacin 0.3 % eye drops 06/23 completed Not Available Not Available Not Available hydrocodone 5 mg-acetamin ophen 325 mg tablet 04/17 completed Not Available Not Available Not Available ondansetron HCl 8 mg tablet Take 1 tablet every 8 hours by oral route as needed for 2 days. active Not Available Not Available No t Available prednisone 20 mg tablet 40 MG (2 X 20 MG) ORALLY DAILY FOR 5 DAYS 05/02 completed Not Available Not Available Not Available dextroamphe tamine-amph etamine 10 mg tablet TAKE 1 TABLET BY MOUTH EVERY DAY AT NOON active Not Available Not Available No t Available clonazepam 0.5 mg tablet TAKE 1 TABLET BY MOUTH EVERY DAY NEEDED 12/19 completed Not Available Not Available Not Available clonazepam 1 mg tablet 1 po qday prn active Not Available Not Available No t Available diphenoxyla te-atropine 2.5 mg-0.025 mg tablet Take 2 tablets 4 times a day by oral route. 04/15 completed Not Available Not Available Not Available topiramate 25 mg tablet 1 po qhs x 7 days then 1 po bid x 7 days then 1 po qAM and 2 po qhs x 7 days then 2 po bid active Not Available Not Available No t Available phentermine 37.5 mg tablet TAKE 1 TABLET BY MOUTH ONCE DAILY 03/10 completed Not Available Not Available Not Available amlodipine 5 mg tablet TAKE 2 TABLETS BY MOUTH EVERY MORNING 02/22 completed Not Available Not Available Not Available tramadol 50 mg tablet active Not Available Not Available No t Available ketorolac 0.5 % eye drops 06/23 completed Not Available Not Available Not Available dextroamphe tamine-amph etamine 30 mg tablet 1/2 tab po bid active Not Available Not Available No t Available nystatin-tr iamcinolone 100,000 unit/gram-0 .1 % topical ointment 08/26 completed Not Available Not Available Not Available alprazolam 0.5 mg tablet 08/26 completed Not Available Not Available Not Available amoxicillin 875 mg tablet TAKE 1 TABLET BY MOUTH EVERY 12 HOURS FOR 7 DAYS 02/22 completed Not Available Not Available Not Available prednisolon e acetate 1 % eye drops,suspe nsion 06/23 completed Not Available Not Available Not Available benzonatate 100 mg capsule TAKE 2 CAPSULES BY MOUTH 3 TIMES A DAY NEEDED FOR COUGH 11/29 completed Not Available Not Available Not Available cephalexin 500 mg capsule 12/30 completed Not Available Not Available Not Available cyanocobala min (vit B-12) 1,000 mcg/mL injection solution 1 ml IM q4 weeks 02/22 completed Not Available Not Available Not Available oseltamivir 75 mg capsule TAKE ONE CAPSULE BY MOUTH TWICE A DAY FOR 5 DAYS 06/25 completed Not Available Not Available Not Available dextroamphe tamine-amph etamine 20 mg tablet TAKE 1 TABLET BY MOUTH TWICE A DAY 02/22 completed Not Available Not Available Not Available clonazepam 2 mg tablet TAKE 1 TABLET BY MOUTH EVERY DAY NEEDED 03/10 completed Not Available Not Available Not Available promethazin e 25 mg tablet active Not Available Not Available Not Available diclofenac sodium 75 mg tablet,sree yed release 1 po bid prn 04/17 completed Not Available Not Available Not Available cephalexin 500 mg tablet Take 1 tablet twice a day by oral route for 7 days. 12/30 completed Not Available Not Available Not Available montelukast 10 mg tablet TAKE 1 TABLET BY MOUTH EVERY DAY 03/10 completed Not Available Not Available Not Available ergocalcife rol (vitamin D2) 1,250 mcg (50,000 unit) capsule TAKE ONE CAPSULE EVERY WEEK 11/22 completed Not Available Not Available Not Available azelastine 137 mcg (0.1 %) nasal spray USE 2 SPRAYS IN EACH NOSTRIL TWICE A DAY active Not Available Not Available No t Available levofloxaci n 500 mg tablet Take 1 tablet every day by oral route for 10 days. active Not Available Not Available No t Available methylpredn isolone 4 mg tablets in a dose pack TAKE 6 TABLETS ON DAY 1 DIRECTED ON PACKAGE AND DECREASE BY 1 TAB EACH DAY FOR A TOTAL OF 6 DAYS 05/02 completed Not Available Not Available Not Available albuterol sulfate HFA 90 mcg/actuati on aerosol inhaler INHALE 2 PUFFS EVERY 4 HOURS BY INHALATIO N ROUTE. 02/22 completed Not Available Not Available Not Available cefdinir 300 mg capsule TAKE 1 CAPSULE BY MOUTH EVERY 12 HOURS 04/29 completed Not Available Not Available Not Available fluticasone propionate 50 mcg/actuati on nasal spray,suspe nsion 2 sprays each nostril qday 04/17 completed Not Available Not Available Not Available amoxicillin 875 mg-potassiu m clavulanate 125 mg tablet TAKE 1 TABLET BY MOUTH EVERY 12 HOURS FOR 10 DAYS 04/29 completed Not Available Not Available Not Available escitalopra m 10 mg tablet TAKE 1 TABLET BY MOUTH EVERY DAY 07/22 completed Not Available Not Available Not Available escitalopra m 20 mg tablet TAKE 1 TABLET DAILY 02/22 completed Not Available Not Available Not Available cyclobenzap rine 5 mg tablet Take 1 tablet 3 times a day by oral route for 7 days, for back pain. 2024 active Not Available Not Available Not Avai lable topiramate 50 mg tablet 1 po qday 11/22 completed Not Available Not Available Not Available prednisone 05/02 completed Not Available Not Available Not Available cholecalcif dominga (vitamin D3) 50 mcg (2,000 unit) capsule TAKE 1 CAPSULE BY MOUTH EVERY DAY FOR 90 DAYS 03/10 completed Not Available Not Available Not Available EpiPen 2-Shen 0.3 mg/0.3 mL injection, auto-inject or 11/22 completed Not Available Not Available Not Available BinaxNOW COVID-19 Ag Self Test kit TEST DIRECTED TODAY 12/16 completed Not Available Not Available Not Available Vitals Date Recorded Body mass index (BMI) Body height Oxygen saturation Oxygen saturation in Arterial blood by Pulse oximetry Heart rate Body temperature Body weight Systolic And Diastolic Provider Name and Address Organization Details Last Updated DateTime 3 32.4 kg/m2 168.91 cm 99 % 99 % 87 /min 98.4 [degF] 75730.8 4 g 132/84 mm[Hg] Not Available [facility] 3 08:46:40 Date Recorded Body height Body mass index (BMI) Body weight Body temperature Heart rate Oxygen saturation Oxygen saturation in Arterial blood by Pulse oximetry Systolic And Diastolic Provider Name and Address Organization Details Last Updated DateTime 4 168.91 cm 35.3 kg/m2 651077. 51 g 98 [degF] 80 /min 97 % 97 % 138/82 mm[Hg] Bunny Rodriguez RN [facility] [email or web address] 4 08:31:09 Date Recorded Body weight Body mass index (BMI) Body height Body temperature Provider Name and Address Organization Details Last Updated DateTime 03/10/2025 02376.8 g 34.2 kg/m2 168.91 cm 97.8 [degF] Michelle Drew RN [facility] [email or web address] 03/10/2025 14:10:50 Date Recorded Body height Body mass index (BMI) Body weight Body temperature Heart rate Oxygen saturation Oxygen saturation in Arterial blood by Pulse oximetry Systolic And Diastolic Provider Name and Address Organization Details Last Updated DateTime 168.91 cm 32.3 kg/m2 04231.2 5 g 97.4 [degF] 79 /min 98 % 98 % 167/90 mm[Hg] BALTA De Los Santos [place] [employer] [facility] [email or web address] 15:27:21 Date Recorded Body height Provider Name an d Address Organization Details Last Updated DateTime 09/15/2023 168.91 cm Claire Lance LPN [facility] [email or web address] 09/15/2023 12:23:50 Social History Question Answer Notes LastModified by Organization Details LastModified Time Tobacco Smoking Status Never Smoker Not Available [facility] 12/18/2022 08:44:54 Do You Have An Advance Directive? Yes Information not available 05/02/2025 Are You Blind Or Do You Have Difficulty Seeing? Yes Does Have Cataracts Information not available 05/02/2025 Is Blood Transfusion Acceptable In An Emergency? Yes Information not available 05/02/2025 What Is Your Level Of Caffeine Consumption? None [id number] Information not available 12/18/2022 In The 14 Days Before Symptom Onset, Have You Had Close Contact With A Laboratory-confi rmed COVID-19 While That Case Was Ill? No [id number] Information not available 12/18/2022 In The 14 Days Before Symptom Onset, Have You Had Close Contact With A Person Who Is Under Investigation For COVID-19 While That Person Was Ill? No [id number] Information not available 12/18/2022 Are You Deaf Or Do You Have Serious Difficulty Hearing? No Information not available 05/02/2025 What Type Of Diet Are You Following? REGULAR [id number] Information not available 12/18/2022 What Is The Highest Grade Or Level Of School You Have Completed Or The Highest Degree You Have Received? [id number] Information not available 05/02/2025 Have There Been Any Changes To Your Family Or Social Situation? No Information not available 05/02/2025 Do You Use Insect Repellent Routinely? No Information not available 05/02/2025 Where Do You Live? [facility] Information not available 05/02/2025 What Was The Date Of Your Most Recent Tobacco Screening? 05/02/2025 Information not available 05/02/2025 Do You Have Any Pets? Yes Information not available 05/02/2025 What Is Your Relationship Status? Information not available 05/02/2025 Do You Use Your Seat Belt Or Car Seat Routinely? Yes Information not available 05/02/2025 Do You Have Smoke And Carbon Monoxide Detectors In Your Home? Yes Information not available 05/02/2025 Are You Passively Exposed To Smoke? Yes Information not available 05/02/2025 Are There Any Smokers In Your House? Yes Information not available 05/02/2025 What Types Of Sporting Activities Do You Participate In? Foot [employer] Information not available 05/02/2025 Do You Use Sunscreen Routinely? Yes Information not available 05/02/2025 Has Tobacco Cessation Counseling Been Provided? No [id number] Information not available 12/18/2022 Have You Recently Traveled Abroad? No MIGRATION.[id number] [id number] Information not available 12/18/2022 Do You Have Difficulty Walking Or Climbing Stairs? No Information not available 05/02/2025 Do You Have Any Dietary Restrictions? No MIGRATION.0301 [id number] Information not available 12/18/2022 Sex: Female Functional Status Question Answer Note LastModified by Organizat ion Details LastModified Time Do you use any illicit or recreational drugs? No [id number] Information not available 12/18/2022 Do you or have you ever used any other forms of tobacco or nicotine? No [id number] Information not available 12/18/2022 Are you currently employed? Yes Information not available 05/02/2025 Do you have transportation difficulties? No Information not available 05/02/2025 Are you able to walk? [employer] Information not available 05/02/2025 Do you have difficulty doing errands alone? No Information not available 05/02/2025 Are you able to care for yourself? Yes Information n ot available 05/02/2025 What is your occupation? [email or web address] Information not available 05/02/2025 Do you have difficulty dressing or bathing? No Information not available 05/02/2025 What is your exercise level? Occasional Information not available 05/02/2025 Mental Status Question Answer Note LastModified by Organizat ion Details LastModified Time Do you feel stressed (tense, restless, nervous, or anxious, or unable to sleep at night)? [id number] Information not available 05/02/2025 Do you have difficulty concentrating, remembering or making decisions? Yes Information no t available 05/02/2025 Family History Relationship Description Onset Age of this Age Resolved Age Notes LastModified by Organization Details LastModified Time Father Squamous cell carcinoma of anal margin [email or web address] Not available 03/2024 08:39:56 Paternal Uncle Malignant neoplasm of bone [email or web address] Not available 2023 08:41:13 Notes:NO ENT Medical History Condition Response SLEEP APNEA N MRSA N ALLERGIES/HAYFEVER N LUNG DISEASE/DISORDER N INSOMNIA N HISTORY OF DRUG ABUSE N RADIATION / CHEMOTHERAPY N COPD N HIGH CHOLESTEROL / HYPERLIPIDEMIA N HYPERTHYROIDISM N BLOOD DISEASES N EAR OR HEARING PROBLEMS N HYPOTHYROIDISM N SHINGLES N DEPRESSION (INCLUDING POST ) N HAVE YOU BEEN HOSPITALIZED OR SEEN IN [facility] ER IN THE PAST YEAR ? N STROKE/TIA N ULCERS N OBESITY N HISTORY WITH COMPLICATIONS WITH ANESTHES IA ? Y ANEURYSM N USE OF BLOOD THINNERS N NO SIGNIFICANT PAST MEDICAL HISTORY N DIABETES, TYPE N PARATHYROID DISEASE N ENT N SEASONAL ALLERGIES N HEARTBURN / REFLUX N HEPATITIS / LIVER DISEASE N SLEEP DISORDER N SEIZURES/EPILEPSY N HEADACHES/MIGRAINES N CHF N PACEMAKER N DIZZINESS N HEART DISEASE/HEART PROBLEMS N AIDS/HIV N FRACTURES N HYPERTENSION N CANCER: SPECIFY N TOURETTE'S N BLOOD TRANSFUSION Y ANESTHESIA COMPLICATIONS N ANEMIA/BLOOD DISORDER Y CHRONIC EAR INFECTIONS N TUBERCULOSIS N Gynecological HistoryNo gynecological history recorded. Obstetrics History GPAL:G 0 P 0 0 0 0 Immunizations Vaccine Type Date Status Note Provider Nam e and Address Organization Details Recorded Time Tdap 05/03/2025 completed BALTA [place] [facility] 05/03/2025 17:57:52 Past Encounters Encounter ID Performer Location Encounter Start Date Encounter Closed Date Diagnosis/Indication Diagnosis SNOMED-CT Code Diagnosis ICD10 Code Diagnosis Note [id number] KRYSTLA Astudillo [facility] [address] [place] [address] 07/13/2021 00:00:00 07/13/2021 10:02:37 [id number] KRYSTAL Astudillo [facility] [address] [place] [address] 08/13/2021 00:00:00 08/13/2021 12:21:58 [id number] KRYSTAL Astudillo [facility] Primary [facility] [address] [place] [address] 09/17/2021 00:00:00 09/17/2021 13:14:04 [id number] Rhiannon Elias MD [facility] Primary [facility] [address] [facility] [place] [address] 11/27/2021 00:00:00 11/27/2021 09:13:59 [id number] Garrick Zayas MD [facility] [place] [address] [place] [address] 11/29/2021 00:00:00 11/29/2021 12:23:53 [id number] Rhiannon Elias MD [facility] [place] [address] [place] [address] 12/25/2021 00:00:00 12/25/2021 09:24:52 [id number] Garrick Zayas MD [facility] [place] [address] [place] [address] 12/27/2021 00:00:00 12/27/2021 12:48:58 [id number] Rhiannon Elias MD [facility] [place] [address] [place] [address] 01/23/2022 00:00:00 01/23/2022 12:04:47 [id number] KRYSTAL Astudillo [facility] [place] [address] [place] [address] 03/01/2022 00:00:00 03/01/2022 10:07:51 [id number] Rhiannon Elias MD [facility] [place] [address] [place] [address] 06/13/2022 00:00:00 06/13/2022 08:31:10 [id number] Rhiannon Elias MD [facility] [place] [address] [place] [address] 09/16/2022 00:00:00 09/16/2022 08:21:13 [id number] Rhiannon Elias MD [facility] [place] [address] [place] [address] 12/16/2022 00:00:00 12/16/2022 08:13:34 [id number] Rhiannon Elias MD [facility] [place] [address] [place] [address] 09/15/2023 11:50:26 09/22/2023 14:02:25 [id number] Rhiannon Elias MD [facility] Primary [facility] [place] [address] [place] [address] 02/23/2024 08:20:24 02/23/2024 08:56:40 Adult health examination 075251260 Z00.00 Z13.1 Z13.220 Z79.899 Mammogram normal 02/10 repeat ear ly flu vaccineCov id booster recommende dRecommend shingrix seriesReco mmend pneumovax 23 at age 64Colonosc opy referral givenRecom mend pap smearCheck fasting labs Screening for malignant neoplasm of colon 577940025 Z12.11 Anemia 544549805 D64.9 Vitamin D deficiency 347 79259 E55.9 Vertigo 970251188 R42 R53.83 has had extensive workup post covidconti nue chair [facility] labs Hyperglycemia 30722068 R 73.9 [id number] Garrick Zayas MD [facility] [place] [address] [place] [address] 03/10/2025 13:53:11 03/11/2025 08:59:15 Chronic maxillary sinusitis 75688706 J32.0 [id number] Martir Mcpherson MD [facility] Internal [facility] [address] [place] [address] 05/02/2025 15:17:13 05/03/2025 11:54:08 Screening for cardiovascular system disease 138915084 Z13.6 Long-term current use of drug therapy 173290686 Z79.899 Screening mammography 24 204552 Z12.31 Screening for malignant neoplasm of colon 700667028 Z12.11 Screening for osteoporosis 730386643 Z13.820 Active immunization 3387 9002 Z23 Acute low back pain 2788 84169 M54.50 Health Concerns Section Related Observation LastModified by Organization Detai ls LastModified Time None Recorded Concern Status LastModified by Organization Details LastModified Time None Recorded Advance Directives Directive Y: Payers Insurance Date Sequence Insurance Name Policy Number Policy Brandon Covered Member ID Brandon Member ID Guarantor Name 03/10/2025 1 [facility] [id number] Jenna Malone [id number] Jenna Malone 04/28/2025 1 [facility] [id number] Jenna Malone [id number] Jenna Malone Notes Date Note Type Note Provider Name and Address Organization Details Recorded Time 02/23/2024 text/html here for tony s exam started chair yoga and has noticed some improvement in her flexibility has persistent dizziness since covid with extensive work up Rhiannon Elias MD [address], [place], [address], [place] 02/23/2024 08:55:51 03/10/2025 text/html This patient was here 3 years ago with chronic sinusitis. She developed another sinus infection approximately 1 week ago and is currently on Amoxil clamp and prednisone. Print causing severe insomnia. She has had numerous infections since she has last been here. Her last CT a few years ago demonstrated maxillary Garrick Zayas MD [address], [place], [address], [place] 03/10/2025 14:21:22 05/02/2025 text/html Patient is a 65 year old female that presents to the office for annual wellness and to establish care. Patient reports that she is doing well overall at this time other than having increased back pain. She reports that she has an appointment scheduled with podiatry next week. She denies chest pains, shortness of breath, headaches, or abdominal pains at this time. podiatry- sees next weekback pain/ shoulder pain/ foot painsmoke-nolabs- orderedmammogram- orderedcolonoscopy- raiibbwACI-XITT-ivz eredFlu- no awareCovid- no wareTdap-updatedShi ngles-no awarePneumo-no aware JON Rivera [address], [place], [address], [place] 05/02/2025 16:30:33 OBGyn Episode No OBEpisode recorded.
--- OUTSIDE RECORDS SUMMARY | 2025-05-04 16:29 | XMS_ITS | Continuity of Care Document ---
Author Organization 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, [address] [place] [address], [address], [place] tel:[phone] No Information No Information Family History Family Member Type Diagnosis Age At Onset No Information Payers Payer name Insurance type Covered constitution party ID Authoriza tion(s) No Information Social History Type Description Quantity Date Captured Comments Sex Female Smoking Status No Information Chief Complaint And Reason For Visit No Information History Of Present Illness Encounter Date Complaint History Of Prese nt Illness No Information Medications Administered Medication Instructions Dosage Effective Dates (start - stop) Status Comments No Drug Therapy Prescribed Instructions Date Instruction Additional Infor mation No Information Assessments Type Assessment Date No Information
== END 2025-05-04 16:26 | disposition home or self-care (01) ==
DX: M54.50 Low back pain, unspecified (principal)
CPT/HCPCS: 72100

== ENCOUNTER 2025-10-17 10:42 | Outpatient (CLI) | payer OTHER, SELFPAY ==
--- NOTE | ~2025-10-17 | MM_ITS ---
EXAMINATION: MM screening [facility] w [facility] HISTORY: Screening. TECHNIQUE: Craniocaudal and mediolateral oblique 3-D tomosynthesis images were obtained and synthetic 2-D images were generated. CAD analysis was submitted and interpreted. COMPARISON: None available. BREAST PARENCHYMAL COMPOSITION: Dense: The breasts are heterogeneously dense, Which may obscure small masses. FINDINGS: No suspicious masses are seen. There are no suspicious calcifications. No unexplained architectural distortion is seen. There are no skin or nipple abnormalities identified. There is no adenopathy seen on the images submitted. IMPRESSION: No mammographic evidence to suggest malignancy is seen. The patient may return to screening mammography as per ACR guidelines. BI-RADS 1 - Negative. Reviewed, dictated and finalized at location A. E RIDER
--- NOTE | ~2025-10-17 | DEXA_ITS ---
Bone Density Report Name: JULIO CESAR SPEARS Age: 65 Sex: Female Ethnicity: White Date of : 1960 Indication: postmenopausal; screening for osteoporosis; height loss; Referring Provider: JOSE F, CRISTHIAN Poe Study: Bone densitometry was performed. Exam Date: October 17, 2025 Accession number: [id number] Bone Density: Region BMD T-score Z-score Classification AP Spine(L1-L4) 1.086 0.4 2.2 Normal Femoral Neck (Left) 0.586 -2.4 -0.8 Osteopenia Total Hip (Left) 0.776 -1.4 -0.1 Osteopenia Femoral Neck (Right) 0.637 -1.9 -0.3 Osteopenia Total Hip (Right) 0.722 -1.8 -0.5 Osteopenia Total Hip Mean 0.749 -1.6 -0.3 Osteopenia World Health Organization criteria for BMD impression classify patients as: Normal (T-score at or above -1.0), Osteopenia (T-score between -1.0 and -2.5), or Osteoporosis (T-score at or below -2.5). 10-year Fracture Risk(1): Major Osteoporotic Fracture 12% Hip Fracture 2.3% Reported Risk Factors: [place] (), Neck BMD=0.586, BMI=31.9 (1) FRAX(R) Version 3.08. Fracture probability calculated for an untreated patient. Fracture probability may be lower if the patient has received treatment. Clinical Information Provided by Patient: Has used the following medications: multi vitamin Patient maximum height was 65.0 Menopause Age: 44 Drinks caffeinated beverages Onset of menses at age 11 Number of children 4 Impression: The patient has low bone mass, based on the Left Femoral Neck T-score. The patient has an estimated ten-year risk of hip fracture of 2.3% and an estimated ten-year risk of major fracture of 12%, based on the WHO FRAX algorithm. Discussion: BONE DENSITY IS LOW AT ONE OR MORE SKELETAL SITES. This patient's lowest T-score is low at one or more skeletal sites. It meets the World Health Organization's (WHO) criteria for ?low bone mass? (T-score between -1.0 and -2.5). The patient's 10-year risk of fracture as calculated by FRAX is less than the threshold where pharmacological therapy is recommended by the National Osteoporosis Foundation (NOF). However, all treatment decisions require clinical judgment and consideration of individual patient factors, including patient preferences, comorbidities, previous drug use, risk factors not captured in the FRAX model (e.g., frailty, falls, vitamin D deficiency, increased bone turnover, interval significant decline in bone density) and possible under or overestimation of fracture risk by FRAX. The patient should follow a healthful lifestyle (good nutrition with adequate calcium and vitamin D, and appropriate weight-bearing exercise). Follow-Up: Consider repeating this study in 2 to 3 years to reassess this patient's status, or sooner if there is some new clinical indication. Reported by: HOLLY on 10/17/2025 11:40:00 AM. Reviewed, dictated and finalized at location A.
== END 2025-10-17 10:43 | disposition home or self-care (01) ==
DX: Z12.31 Encounter for screening mammogram for malignant neoplasm of breast (principal); M85.89 Other specified disorders of bone density and structure, multiple sites; Z78.0 Asymptomatic menopausal state
CPT/HCPCS: 77063; 77067; 77080